=== PATIENT | female | born 1945 | race Caucasian/White ===

== ENCOUNTER 2020-12-06 07:16 | Emergency (ER) | payer MEDICARE, SELFPAY ==
[2020-12-06 07:16] VITALS: BP 137/107; PULSE 71; RESP 24; TEMP 36.7; O2SAT 100; BMI 41.5
[2020-12-06 07:33] LABS: Basophils # 0.1 K/mm3 (0-0.2); Basophils % 0.5 % (0.1-2.0); Eosinophils # 0.1 K/mm3 (0.0-0.4); Eosinophils % 0.9 % (0.1-12.0); Hematocrit 43.9 % (37.0-47.0); Hemoglobin 13.5 g/dL (12.2-16.2); Lymphocytes # 3.4 K/mm3 (0.7-4.5); Lymphocytes % 33.8 % (10-50); Mean Corpuscular HGB Conc 30.8 g/dL (31.8-35.4); Mean Corpuscular Hemoglobin 28.1 pg (27.0-31.2); Mean Corpuscular Volume 91.3 fl (81-99); Mean Platelet Volume 7.8 fl (7.4-10.4); Monocytes # 0.2 K/mm3 (0.1-1.0); Monocytes % 1.9 % (1.7-9.3); Neutrophils # 6.3 K/mm3 (1.8-7.8); Neutrophils % 62.9 % (37.0-80.0); Platelet Count 395 K/mm3 (142-424); Red Blood Count 4.81 M/mm3 (4.20-5.40)
--- NOTE | 2020-12-06 07:44 | CT_ITS ---
PROCEDURE: CT HEAD/BRAIN WO CON CLINICAL INDICATION: ams COMPARISON: CT CT HEAD/BRAIN WO CON from 12/10/2019 TECHNIQUE: Axial images obtained. All CT scans at the facility use one or more dose reduction, viz: automated exposure control, ma/kV adjustment per patient size (including targeted exams where dose is matched to indication, i.e. head), or iterative reconstruction technique. FINDINGS: No midline shift, mass effect, intracranial hemorrhage, hydrocephalus, or extra-axial fluid collection is evident. The sylvian fissures and cortical sulci are mildly prominent but unchanged from previous exam 12/10/2019. The calvarium has an unremarkable appearance except for mild hyperostosis frontalis interna. There is total occlusion of the right maxillary sinus secondary to prominent mucoperiosteal thickening and/or fluid and there is moderate mucoperiosteal thickening left maxillary sinus. The ethmoids and frontal sinuses are totally occluded by inflammatory fluid. The sphenoid sinus is somewhat hypoplastic but totally occluded by inflammatory changes.. The mastoids are clear. IMPRESSION: Pansinusitis, likely acute and chronic, similar changes were seen on the previous CT exam normal findings of mild age-appropriate cortical atrophy, no acute intracranial pathology noted Dictated by: Dr. Anthony Chowdhury MD 12/06/2020 08:26 Dr. Anthony Chowdhury MD in [facility] 12/06/2020 08:26
[2020-12-06 07:50] LABS: Alanine Aminotransferase 22 U/L (12-78); Albumin Level 4.3 g/dl (3.5-5.0); Albumin/Globulin Ratio 1.1 (1.1-1.8); Alkaline Phosphatase 159 U/L (38-126); Anion Gap 22.5 mEq/L (5-15); Aspartate Amino Transferase 42 U/L (14-36); Bilirubin,Total 0.6 mg/dl (0.2-1.3); Blood Urea Nitrogen 58 mg/dl (7-17); Calcium 10.5 mg/dl (8.4-10.2); Carbon Dioxide 19 mmol/L (22.0-30.0); Chloride 100 mmol/L (98-107); Creatinine Clearance Estimated 7 mL/min (50-200); Estimated Glomerular Filt Rate 6 ml/min (>60); GFR (African American) 8 ML/MIN (>60); Globulin 3.9 g/dL (1.3-3.2); Glucose 101 mg/dl (74-100); Potassium 5.5 mmoL/L (3.5-5.1); Sodium 136 mmol/L (136-145); Total Protein,Serum 8.2 g/dl (6.3-8.2)
--- NOTE | 2020-12-06 07:54 | PC.NURSE ---
Critical lab taken from lab, creatinine 6.5. Provider notified.
--- NOTE | 2020-12-06 08:02 | HMH.EDGENADL ---
ED Disposition Clinical Impression: Metabolic acidosis Altered mental status Qualifiers: Altered mental status type: delirium Qualified Code(s): R41.0 - Disorientation, unspecified Renal failure (ARF), acute on chronic Qualifiers: Acute renal failure type: unspecified Chronic kidney disease stage: unspecified stage Qualified Code(s): N17.9 - Acute kidney failure, unspecified; N18.9 - Chronic kidney disease, unspecified Disposition: Xfer Critical Access Hosp Condition on Discharge: Critical Instructions: DI for Altered Mental Status Referrals: Provider,Referral, MD [Primary Care Provider] - Time of Disposition: 10:33 - Critical Care Critical Care Time: Yes Attestation: On 12/06/20, the high probability of a clinically significant, sudden or life threatening deterioration of the following system(s) required my full and direct attention, intervention and personal management. The time I documented below is in addition to time spent performing reported procedures but includes the following listed in this critical care notation. Total Critical Care Time: 45 Vital system(s) involved:: Central Nervous System, Metabolic Failure, Renal Failure My critical care processes included: Assessment & monitoring of V/S, Initial and Re-exams, Data Review/Interpretation, Coordinating Care, Medication Orders and management, Documentation Medical Decision Making - Medical Records Medical records reviewed: Yes: I reviewed the patient's medical records. - Chucky Inquiry Pt receiving controlled substance: No Vital Signs: 12/06/20 07:16 12/06/20 09:08 12/06/20 09:30 Temperature 98.1 F Temperature Source Oral Pulse Rate [Left Radial] 71 80 78 Respiratory Rate 24 Blood Pressure [Right Arm] 137/107 H 171/107 H 140/86 Blood Pressure Mean [Right Arm] 117 128 104 Blood Pressure Source [Right Arm] Automatic Cuff Automatic Cuff Automatic Cuff Blood Pressure Position [Right Arm] Sitting Sitting Sitting 02 Sat by Pulse Oximetry 100 97 96 Oxygen Delivery Method Nasal Cannula Room Air Room Air Oxygen Flow Rate (LPM) 2 12/06/20 10:25 Temperature Temperature Source Pulse Rate [Left Radial] 63 Respiratory Rate Blood Pressure [Right Arm] 136/55 L Blood Pressure Mean [Right Arm] 82 Blood Pressure Source [Right Arm] Automatic Cuff Blood Pressure Position [Right Arm] Sitting 02 Sat by Pulse Oximetry 92 L Oxygen Delivery Method Room Air Oxygen Flow Rate (LPM) - Lab Data Lab Results 12/06/20 07:20: WBC 10.0, RBC 4.81, Hgb 13.5, Hct 43.9, MCV 91.3, MCH 28.1, MCHC 30.8 L, RDW 16.0, Plt Count 395, MPV 7.8, Neut % (Auto) 62.9, Lymph % (Auto) 33.8, [place] % (Auto) 1.9, Eos % (Auto) 0.9, Baso % (Auto) 0.5, Neut # (Auto) 6.3, Lymph # (Auto) 3.4, [place] # (Auto) 0.2, Eos # (Auto) 0.1, Baso # (Auto) 0.1 12/06/20 07:20: Sodium 136, Potassium 5.5 H, Chloride 100, Carbon Dioxide 19 L, Anion Gap 22.5 H, BUN 58 H, Creatinine 6.50 H, Estimated Creat Clear 7, Estimated GFR 6 L*, Est GFR ( Amer) 8 L*, Glucose 101 H, Calcium 10.5 H, Total Bilirubin 0.6, AST 42 H, ALT 22, Alkaline Phosphatase 159 H, Total Protein 8.2, Albumin 4.3, Globulin 3.9 H, Albumin/Globulin Ratio 1.1 12/06/20 07:21: TSH 9.00 H 12/06/20 08:24: VBG pH 7.18 L, VBG pCO2 48.3, VBG pO2 53.1 H, VBG HCO3 17.7 L, VBG Total CO2 19.2 L, VBG O2 Saturation 82.5 H, VBG Base Excess -10.6 L 12/06/20 08:30: Urine Creatinine 84 12/06/20 08:35: Urine Color Yellow, Urine Appearance Clear, Urine pH 6.0, Ur Specific [place] 1.020, Urine Protein Negative, Urine Glucose (UA) Negative, Urine Ketones Negative, Urine Blood Negative, Urine Nitrate Negative, Urine Bilirubin Negative, Urine Urobilinogen 0.2, Ur Leukocyte Esterase Negative, Urine RBC None, Urine WBC 5-10, Ur Squamous Epith Cells 50-100, Urine Bacteria None Result diagrams: 12/06/20 07:20 12/06/20 07:20 Orders (Tests/Meds): ED MEDICATIONS Generic Name Dose Route Start Last Admin Trade Name Freq PRN Reason Stop Dose Admin Olanzapin
--- NOTE | 2020-12-06 08:02 | PC.NURSE ---
Patient to ct.
--- NOTE | 2020-12-06 08:07 | CT_ITS ---
PROCEDURE: CT ABDOMEN PELVIS WO CON CLINICAL HISTORY: abd pain COMPARISON: CT ABDPELW/O CT ABD PELVIS W/O CONTRAST from 02/02/2015 TECHNIQUE: Axial images obtained with sagittal and coronal reformats. All CT scans at the facility use one or more dose reduction, viz: automated exposure control, ma/kV adjustment per patient size (including targeted exams where dose is matched to indication, i.e. head), or iterative reconstruction technique. FINDINGS: Unfortunately the highest images did not include any of the lung parenchyma and the right lower lobe pulmonary nodule seen on the previous exam is evaluated. The gastric lap band is again noted. The stomach is mildly dilated with air and fluid. The irregular calcification posterior capsule right lobe of liver is again seen stable and unchanged. The liver is otherwise unremarkable. The spleen is normal. The patient is post cholecystectomy. The pancreas is unremarkable. The adrenal glands are normal. The kidneys are normal in size again showing an extrarenal pelvis right kidney mildly dilated the stable unchanged from the previous exam. There is no definite obstructive uropathy of either kidney. There is prominent streak artifact from multilevel metallic brackets and pedicle screws thoracolumbar spine. The small bowel is grossly normal. There is moderate gaseous dilatation of the entire colon. There are no findings to a suggest bowel obstruction and there is no evidence of diverticulitis. The urinary bladder is moderately dilated with urine but otherwise appears normal. The patient is post hysterectomy. There is no free fluid in the pelvis. There is a large calcified injection granuloma upper portion right buttock. There is generalized osteopenia of the visualized portion of the thoracic spine and the entire lumbar spine. IMPRESSION: Colonic ileus, no definite evidence of mechanical small bowel or large bowel obstruction. Stable extrarenal pelvis right kidney but with no obvious obstructive uropathy of either kidney. Prominent streak artifact degrades anatomical detail in the abdomen due to the multilevel metallic brackets and pedicle screws involving the entire lumbar spine. Stable gastric lap band as noted Dictated by: Dr. Anthony Chowdhury MD 12/06/2020 10:20 Dr. Anthony Chowdhury MD in [facility] 12/06/2020 10:20
--- NOTE | 2020-12-06 08:08 | PC.NURSE ---
Called [facility] for possible transfer per Dr. Garcia
--- NOTE | 2020-12-06 08:12 | PC.NURSE ---
Dr Garcia speaking to Dr Rice at this time
--- NOTE | 2020-12-06 08:24 | XR_ITS ---
PROCEDURE: XR CHEST AP CLINICAL HISTORY: ams COMPARISON: CR CXR CHEST(2 VIEWS-NOT PORTABLE) from 12/10/2013 CR XR CHEST AP from 06/12/2019 FINDINGS: The cardiomediastinal silhouette and pulmonary vascularity are within normal limits considering the supine position. The lungs are clear without infiltrates, suspicious nodules, or pleural effusions. The metallic rods and pedicle screws are again seen lower thoracic spine No acute bony abnormalities. IMPRESSION: No acute findings. Dictated by: Dr. Anthony Chowdhury MD 12/06/2020 11:27 Dr. Anthony Chowdhury MD in [facility] 12/06/2020 11:27
--- NOTE | 2020-12-06 08:24 | ECG_ITS ---
APPROVED REPORT Exam: Resting ECG HR:66 bpm ECG Measurements Heart Rate [address] 172 P 60 QRSd 86 QRS 7 QT 424 T 19 QTc 444 Conclusion Normal sinus rhythm Normal ECG Electronically signed by : Felipe Montana, 12/06/2020 14:47:02
--- NOTE | 2020-12-06 08:26 | PC.NURSE ---
unable to obtain vs due to pt thrashing around.
[2020-12-06 08:39] LABS: Microscopic, Urine URINE MICROSCOPIC (MICROSCOPIC)
[2020-12-06 08:48] LABS: Appearance,Urine CLEAR (Clear); Bilirubin,Urine Negative (Negative); Blood, Urine Negative (Negative); Color,Urine YELLOW (Yellow); Glucose,Urine (UA) Negative (Negative); Ketones,Urine Negative (Negative); Leukocyte Esterase,Urine Negative (Negative); Nitrate,Urine Negative (Negative); Protein,Urine Negative (Negative); Urobilinogen,Urine 0.2 EU/dl (0.2)
[2020-12-06 08:54] LABS: VBG Base Excess -10.6 mmol/L (-2.4-2.3); VBG HCO3 17.7 mmol/L (23-30); VBG Oxygen Saturation 82.5 % (50-70); VBG PCO2 48.3 mmol/L (35-51); VBG PO2 53.1 mmol/L (28-40); VBG Total CO2 19.2 mmol/L (23-27)
[2020-12-06 08:55] LABS: VBG PH 7.18 mmol/L (7.31-7.41)
[2020-12-06 09:08] VITALS: BP 171/107; PULSE 80; O2SAT 97
[2020-12-06 09:12] LABS: Creatinine,Urine Random 84 mg/dL (Not Estab.)
[2020-12-06 09:13] LABS: Squamous Epithelial Cell,Urine 50-100 #/hpf (0-5)
[2020-12-06 09:30] VITALS: BP 140/86; PULSE 78; O2SAT 96
--- NOTE | 2020-12-06 09:46 | PC.NURSE ---
Pt to rad.
--- NOTE | 2020-12-06 10:18 | PC.NURSE ---
Dr Garcia spoke with radiologist. Calling [facility] back at this time.
[2020-12-06 10:25] VITALS: BP 136/55; PULSE 63; O2SAT 92
--- NOTE | 2020-12-06 10:28 | PC.NURSE ---
Dr Rice returned call, speaking with Dr Garcia at this time.
[2020-12-06 11:27] VITALS: BP 143/62; PULSE 68; O2SAT 96
--- NOTE | 2020-12-06 11:29 | PC.NURSE ---
[facility] aware of transfer
[2020-12-06 11:47] LABS: POC Glucose,Bedside 112 (70-110)
[2020-12-06 11:54] VITALS: BP 170/59; PULSE 64; RESP 16; TEMP 36.8; O2SAT 96
[2020-12-07 13:29] LABS: Sodium, Urine 45 mmol/L (Not Estab.)
[2020-12-08 05:24] LABS: Osmolality, Urine 290 mOsmol/kg (.)
[2020-12-21 11:08] LABS: POC Glucose,Bedside 78 (70-110)
== END 2020-12-06 11:57 | disposition critical access hospital (66) ==
PROVIDERS: Emergency Medicine; Emergency Provider Emergency Medicine
DX: E87.2 Acidosis (principal); N17.9 Acute kidney failure, unspecified; E79.0 Hyperuricemia without signs of inflammatory arthritis and tophaceous disease; E11.9 Type 2 diabetes mellitus without complications; Z20.822 Contact with and (suspected) exposure to COVID-19; Z79.4 Long term (current) use of insulin; I10 Essential (primary) hypertension; M54.5 Low back pain; Z88.8 Allergy status to other drugs, medicaments and biological substances; Z79.899 Other long term (current) drug therapy
CPT/HCPCS: 70450; 71045; 74176; 80053; 81001; 82533; 82570; 82803; 82962; 83935; 84300; 84443; 85025; 93005; 96366; 96372; 96374; 96375; 99284; U0003

== ENCOUNTER 2021-01-07 09:57 | Emergency (ER) | payer MEDICARE, SELFPAY ==
[2021-01-07 10:08] VITALS: BP 136/82; PULSE 84; RESP 20; TEMP 36.6; O2SAT 98; BMI 47.5
--- NOTE | 2021-01-07 10:24 | XR_ITS ---
PROCEDURE: XR KUB CLINICAL INDICATION: ABD PAIN Abdominal pain constipation COMPARISON: CT CT ABDOMEN PELVIS WO CON from 12/06/2020 FINDINGS: Moderate amount of retained colonic feces throughout. Gastric lap band is present. Extensive postsurgical changes of the lower thoracic and lumbar spine. Heterotopic ossification superior to the right greater trochanter. 9 mm calcific density right upper quadrant possibly due to a common duct stone. IMPRESSION: Constipation. Possible biliary common duct stone Dictated by: Troy Chun MD 01/07/2021 11:27 Troy Chun MD in [facility] 01/07/2021 11:27
--- NOTE | 2021-01-07 10:27 | HMH.EDABDPAI ---
ED Disposition Clinical Impression: Impaction of colon Disposition: Home, Self-Care Condition on Discharge: Good Instructions: DI for Acute Abdominal Pain Referrals: Maximino Roth [Primary Care Provider] - - Critical Care Critical Care Time: No Attestation: On 01/07/21, the high probability of a clinically significant, sudden or life threatening deterioration of the following system(s) required my full and direct attention, intervention and personal management. The time I documented below is in addition to time spent performing reported procedures but includes the following listed in this critical care notation. Medical Decision Making - Medical Records Medical records reviewed: Yes: I reviewed the patient's medical records. - Chucky Inquiry Pt receiving controlled substance: No Vital Signs: 01/07/21 10:08 Temperature 98 F Temperature Source Oral Pulse Rate [Radial] 84 Respiratory Rate 20 Blood Pressure [Right Arm] 136/82 Blood Pressure Mean [Right Arm] 100 Blood Pressure Position [Right Arm] Sitting 02 Sat by Pulse Oximetry 98 Oxygen Delivery Method Room Air - Lab Data Lab Results 01/07/21 11:25: WBC 13.4 H, RBC 4.24, Hgb 11.4 L, Hct 36.8 L, MCV 86.9, MCH 26.9 L, MCHC 31.0 L, RDW 16.2, Plt Count 239, MPV 7.5, Neut % (Auto) 80.9 H, Lymph % (Auto) 15.6, [place] % (Auto) 2.6, Eos % (Auto) 0.6, Baso % (Auto) 0.4, Neut # (Auto) 10.8 H, Lymph # (Auto) 2.1, [place] # (Auto) 0.3, Eos # (Auto) 0.1, Baso # (Auto) 0.1 01/07/21 11:25: Sodium 137, Potassium 3.9, Chloride 105, Carbon Dioxide 22, Anion Gap 13.9, BUN 16, Creatinine 1.30 H, Estimated Creat Clear 26, Estimated GFR 40 L, Est GFR ( Amer) 48 L, Glucose 300 H, Calcium 10.1, Total Bilirubin 0.9, AST 23, ALT 24, Alkaline Phosphatase 200 H, Total Protein 7.5, Albumin 4.1, Globulin 3.4 H, Albumin/Globulin Ratio 1.2, Lipase 158 01/07/21 11:25: Lactate 1.2 Result diagrams: 01/07/21 11:25 01/07/21 11:25 - CT Data CT Scan: Abdomen, Pelvis Time Received: 11:[address] Reviewed: Yes: I have reviewed the patient's CT results, I have viewed the radiologist's interpretation Findings Narrative: rectal impaction; calcification of pancreatic head; pulmonary nodules Abdominal Pain HPI - General Chief Complaint: Abdominal Pain Stated Complaint: no bowel movement in 3 weeks Time Seen by Provider: 01/07/21 10:15 Mode of Arrival: Ambulatory Limitations: No Limitations Description of Symptoms (Recalled from ER Triage Doc. by RN): TO ED PER [facility] CAR WITH C/O ABD PAIN, NAUSEA, CONSTIPATION, LAST BM 3 WEEKS AGO. PT STATES SHE HAS TRIED SEVERAL ENEMAS AND MEDICATIONS WITH NO RELIEF. - History of Present Illness HPI narrative: This is a 75-year-old female presents with diffuse abdominal pain ongoing progressively x3 weeks. Patient reports no bowel movement in the last 3 weeks. She reports despite taking multiple cathartics she is still had no regulation of her bowels. Pain is diffuse and severe. Patient denies obstipation she also denies vomiting but does endorse nausea. Pain is sharp/cramping and constant. No fever no chills. - Related Data Home Medications Medication Instructions Recorded Confirmed Aspirin 81 mg PO DAILY 12/06/20 12/06/20 Budesonide/Formoterol Fumarate 10.2 gm INHALATION NEEDED PRN 12/06/20 12/06/20 [Symbicort 80-4.5 Mcg Inhaler] Butalb/Acetaminophen/Caffeine 50 - 325 mg PO NEEDED PRN 12/06/20 12/06/20 [Wbbwvl-Khdmvegx-Vhha 50-325-40] Furosemide [Lasix 20mg tablet] 20 mg PO DAILY 12/06/20 12/06/20 Glimepiride 4 mg PO DAILY 12/06/20 12/06/20 Hydrocodone/Acetaminophen 10 - 325 mg PO BID 12/06/20 12/06/20 [Hydrocodone-Acetamin 10-325 mg] Insulin Aspart Prot/Insuln Asp 70 units SQ DAILY 12/06/20 12/06/20 [Novolog Mix 70-30 Vial] Levothyroxine Sodium 175 mcg PO DAILY 12/06/20 12/06/20 [Levothyroxine 175mcg (0.175mg) Tab] Losartan Potassium 50 mg PO DAILY 12/06/20 12/06/20 Morphine Sulfate [Morphine Sulfate
--- NOTE | 2021-01-07 10:40 | CT_ITS ---
PROCEDURE: CT ABDOMEN PELVIS WO CON CLINICAL INDICATION: abd pain Abdominal pain, constipation, questionable bowel obstruction COMPARISON: CT ABDPELW/O CT ABD PELVIS W/O CONTRAST from 02/02/[address] ABDOMEN PELVIS WO CON from 12/06/2020 TECHNIQUE: Axial images obtained with sagittal and coronal reformats. All CT scans at the facility use one or more dose reduction, viz: automated exposure control, ma/kV adjustment per patient size (including targeted exams where dose is matched to indication, i.e. head), or iterative reconstruction technique. FINDINGS: LOWER THORAX: There is a 14 mm lobulated noncalcified nodule in the right lower lobe posteriorly. There is a small right pleural effusion and trace left pleural effusion. ABDOMEN & PELVIS: There is a gastric lap band present at the GE junction which appears to be in satisfactory position. There is mild irregularity of the surface of the liver with a prominent left hepatic lobe which may be seen with cirrhosis. Please correlate with clinical parameters. Calcification is present along the posterior liver surface on the right with associated with a 14 mm peripheral hypodensity which is stable.. The spleen and adrenal glands are unremarkable. An 8 mm calcific density is present in the head of the pancreas and may represent a stone within the common bile duct. MRCP may confirm. There are some some additional small calcific foci within the head of the pancreas which may represent sequela from chronic pancreatitis. No renal calculi parent. There is mild prominence of the right renal pelvis not significantly changed. No obvious ureteral calculi. There is a moderate amount of retained colonic feces throughout the colon. There is rectal fecal impaction with the rectum measuring approximately 8 cm in AP dimension. There is thickening of the mucosa of the rectum with stranding of the presacral fat. Stercoral colitis is a consideration. Small bowel gas pattern is nonspecific with a few air-fluid levels within nondistended bowel loops. There is small bowel anastomosis noted in the mid abdominal region. Extensive postsurgical changes of the thoracic and lumbar spine with inter pedicular screws and connecting rods from the lower thoracic spine to the sacrum. The inferior aspect of the connecting pratima on the right extends into the sub cutaneous soft tissues. Bilateral iliac lag screws are also present. Numerous subcutaneous nodular opacities are present and may be due to injection granulomas. Metastatic foci would be included in the differential diagnosis. IMPRESSION: 1. Constipation. Rectal fecal impaction with thickening of the rectal wall and stranding of the perirectal and presacral fat. Stercoral colitis is considered. 2. 8 mm calcific density in the pancreatic head which may represent a common duct stone. ERCP or MRCP may confirm. 3. Small right pleural effusion and trace left pleural effusion. 4. Indeterminate 14 mm right lower lobe nodule. Chest CT may provide further evaluation and to search for additional nodules. 5. Possible cirrhosis. 6. Multiple nodular opacities in the anterior abdominal wall not readily apparent on 12/06/2020 and could be due to areas of injection site. Dictated by: Troy Chun MD 01/07/2021 11:25 Troy Chun MD in [facility] 01/07/2021 11:25
[2021-01-07 11:34] LABS: Basophils # 0.1 K/mm3 (0-0.2); Basophils % 0.4 % (0.1-2.0); Eosinophils # 0.1 K/mm3 (0.0-0.4); Eosinophils % 0.6 % (0.1-12.0); Hematocrit 36.8 % (37.0-47.0); Hemoglobin 11.4 g/dL (12.2-16.2); Lymphocytes # 2.1 K/mm3 (0.7-4.5); Lymphocytes % 15.6 % (10-50); Mean Corpuscular Hemoglobin 26.9 pg (27.0-31.2); Mean Corpuscular Volume 86.9 fl (81-99); Mean Platelet Volume 7.5 fl (7.4-10.4); Monocytes # 0.3 K/mm3 (0.1-1.0); Monocytes % 2.6 % (1.7-9.3); Neutrophils # 10.8 K/mm3 (1.8-7.8); Neutrophils % 80.9 % (37.0-80.0); Platelet Count 239 K/mm3 (142-424); Red Blood Count 4.24 M/mm3 (4.20-5.40); Red Cell Distribution Width 16.2 % (11.5-17.5); White Blood Count 13.4 K/mm3 (4.8-10.8)
[2021-01-07 11:37] LABS: Chloride 105 mmol/L (98-107)
[2021-01-07 11:38] LABS: Potassium 3.9 mmoL/L (3.5-5.1); Sodium 137 mmol/L (136-145)
[2021-01-07 11:40] LABS: Alanine Aminotransferase 24 U/L (12-78); Aspartate Amino Transferase 23 U/L (14-36); Blood Urea Nitrogen 16 mg/dl (7-17); Creatinine Clearance Estimated 26 mL/min (50-200); Estimated Glomerular Filt Rate 40 ml/min (>60); GFR (African American) 48 ML/MIN (>60); Lactic Acid 1.2 mmol/L (0.7-2.1)
[2021-01-07 11:41] LABS: Albumin Level 4.1 g/dl (3.5-5.0); Albumin/Globulin Ratio 1.2 (1.1-1.8); Alkaline Phosphatase 200 U/L (38-126); Anion Gap 13.9 mEq/L (5-15); Bilirubin,Total 0.9 mg/dl (0.2-1.3); Calcium 10.1 mg/dl (8.4-10.2); Carbon Dioxide 22 mmol/L (22.0-30.0); Globulin 3.4 g/dL (1.3-3.2); Glucose 300 mg/dl (74-100); Lipase 158 U/L (23-300); Total Protein,Serum 7.5 g/dl (6.3-8.2)
[2021-01-07 12:43] VITALS: BP 125/74; PULSE 78; RESP 16; TEMP 36.6; O2SAT 98
== END 2021-01-07 12:45 | disposition home or self-care (01) ==
PROVIDERS: Emergency Provider Emergency Medicine; PCP Social Worker
DX: K56.49 Other impaction of intestine (principal); E11.65 Type 2 diabetes mellitus with hyperglycemia; I10 Essential (primary) hypertension; E66.9 Obesity, unspecified; Z68.42 Body mass index [BMI] 45.0-49.9, adult; Z85.05 Personal history of malignant neoplasm of liver; Z88.8 Allergy status to other drugs, medicaments and biological substances; Z79.899 Other long term (current) drug therapy
CPT/HCPCS: 74018; 74176; 80053; 83605; 83690; 85025; 96365; 99282

== ENCOUNTER 2021-01-22 07:44 | Emergency (ER) | payer MEDICARE, SELFPAY ==
[2021-01-22] VITALS (8 sets, daily range): BP systolic 123–164; BP diastolic 66–80; PULSE 50–61; RESP 14–18; TEMP 36.6; O2SAT 96–100; BMI 40.3
--- NOTE | 2021-01-22 07:46 | ECG_ITS ---
APPROVED REPORT Exam: Resting ECG HR:62 bpm ECG Measurements Heart Rate 62 AXES OR 170 P 45 QRSd 80 QRS 6 QT 434 T 27 QTc 440 Conclusion Sinus rhythm with occasional premature ventricular complexes Otherwise normal ECG Electronically signed by : Felipe Montana, 01/23/2021 18:06:13
--- NOTE | 2021-01-22 07:48 | PC.NURSE ---
initial finger stick 129 mg/dl
--- NOTE | 2021-01-22 08:05 | HMH.EDGENADL ---
ED Disposition Clinical Impression: Hypoglycemia Disposition: Home, Self-Care Condition on Discharge: Good Instructions: DI for Hyperglycemia -- Adult Referrals: Maximino Roth [Primary Care Provider] - - Critical Care Critical Care Time: No Attestation: On 01/22/21, the high probability of a clinically significant, sudden or life threatening deterioration of the following system(s) required my full and direct attention, intervention and personal management. The time I documented below is in addition to time spent performing reported procedures but includes the following listed in this critical care notation. Medical Decision Making - Chucky Inquiry Pt receiving controlled substance: No Vital Signs: 01/22/21 07:45 01/22/21 08:04 01/22/21 08:30 Temperature 97.8 F Temperature Source Oral Pulse Rate 57 L 61 Pulse Rate [Radial] 56 L Respiratory Rate 16 18 14 Blood Pressure 164/76 H 148/69 H Blood Pressure [Right Arm] 160/80 H Blood Pressure Mean 83 95 Blood Pressure Mean [Right Arm] 106 Blood Pressure Position [Right Arm] Sitting 02 Sat by Pulse Oximetry 100 100 98 Oxygen Delivery Method Room Air 01/22/21 09:00 01/22/21 09:30 01/22/21 10:00 Temperature Temperature Source Pulse Rate 51 L 50 L 52 L Pulse Rate [Radial] Respiratory Rate 16 14 16 Blood Pressure 147/79 H 123/77 145/66 H Blood Pressure [Right Arm] Blood Pressure Mean 96 97 92 Blood Pressure Mean [Right Arm] Blood Pressure Position [Right Arm] 02 Sat by Pulse Oximetry 99 98 96 Oxygen Delivery Method 01/22/21 10:30 Temperature Temperature Source Pulse Rate 54 L Pulse Rate [Radial] Respiratory Rate 18 Blood Pressure 158/69 H Blood Pressure [Right Arm] Blood Pressure Mean 96 Blood Pressure Mean [Right Arm] Blood Pressure Position [Right Arm] 02 Sat by Pulse Oximetry 97 Oxygen Delivery Method - Lab Data Lab Results 01/22/21 07:55: WBC 12.6 H, RBC 5.06, Hgb 13.9, Hct 44.1, MCV 87.1, MCH 27.4, MCHC 31.4 L, RDW 15.6, Plt Count 457 H, MPV 8.2, Neut % (Auto) 68.2, Lymph % (Auto) 26.1, [place] % (Auto) 4.0, Eos % (Auto) 1.0, Baso % (Auto) 0.8, Neut # (Auto) 8.6 H, Lymph # (Auto) 3.3, [place] # (Auto) 0.5, Eos # (Auto) 0.1, Baso # (Auto) 0.1 01/22/21 07:55: Sodium 138, Potassium 4.1, Chloride 95 L, Carbon Dioxide 34 H, Anion Gap 13.1, BUN 25 H, Creatinine 1.60 H, Estimated Creat Clear 54, Estimated GFR 31 L, Est GFR ( Amer) 38 L, Glucose 166 H, Calcium 11.9 H, Total Bilirubin 0.6, AST 26, ALT 16, Alkaline Phosphatase 159 H, Troponin I < 0.01, Total Protein 8.2, Albumin 4.7, Globulin 3.5 H, Albumin/Globulin Ratio 1.3 01/22/21 08:03: Urine Color Yellow, Urine Appearance Clear, Urine pH 7.0, Ur Specific [place] 1.010, Urine Protein Negative, Urine Glucose (UA) Negative, Urine Ketones Negative, Urine Blood Negative, Urine Nitrate Negative, Urine Bilirubin Negative, Urine Urobilinogen 0.2, Ur Leukocyte Esterase Negative, Urine RBC None, Urine WBC None, Ur Squamous Epith Cells Occasional, Urine Bacteria Trace 01/22/21 10:31: POC Glucose 124 H Result diagrams: 01/22/21 07:55 01/22/21 07:55 - Radiology Data #1 Image(s): Chest Image Reviewed: Yes I have reviewed radiologist's interpretation PROCEDURE: XR CHEST PORTABLE CLINICAL HISTORY: HYPOGLYCEMIA COMPARISON: CR CXR CHEST(2 VIEWS-NOT PORTABLE) from 12/10/2013 CR XR CHEST AP from 06/12/2019 CR XR CHEST AP from 12/06/2020 FINDINGS: Normal heart size. Mild prominence of the mediastinum which may be due to the low lung volumes and AP supine technique. The lungs are clear without infiltrates, suspicious nodules, or pleural effusions. Postsurgical changes of the thoracic and lumbar inter pedicular screws and connecting rods IMPRESSION: No acute findings. Dictated by: Troy Chun MD 01/22/2021 09:00 Troy Chun MD in [facility] 01/22/2021 09:00 - CT Data CT Scan: Head Time Received: 09:[address] Reviewed: Yes: I
--- NOTE | 2021-01-22 08:06 | CT_ITS ---
PROCEDURE: CT HEAD/BRAIN WO CON CLINICAL INDICATION: UNRESPONSIVE COMPARISON: CT CT HEAD/BRAIN WO CON from 12/06/2020 TECHNIQUE: Axial images obtained. All CT scans at the facility use one or more dose reduction, viz: automated exposure control, ma/kV adjustment per patient size (including targeted exams where dose is matched to indication, i.e. head), or iterative reconstruction technique. FINDINGS: No midline shift, mass effect, intracranial hemorrhage, hydrocephalus, or extra-axial fluid collection is evident. The calvarium has an unremarkable appearance. No mastoid effusion. There is opacification of the right maxillary sinus and the frontal sinuses bilateral ethmoid sinuses IMPRESSION: No acute intracranial findings. Sinusitis Dictated by: Troy Chun MD 01/22/2021 08:58 Troy Chun MD in [facility] 01/22/2021 08:58
[2021-01-22 08:12] LABS: Microscopic, Urine URINE MICROSCOPIC (MICROSCOPIC)
[2021-01-22 08:17] LABS: Appearance,Urine CLEAR (Clear); Bilirubin,Urine Negative (Negative); Blood, Urine Negative (Negative); Color,Urine YELLOW (Yellow); Glucose,Urine (UA) Negative (Negative); Ketones,Urine Negative (Negative); Leukocyte Esterase,Urine Negative (Negative); Nitrate,Urine Negative (Negative); Protein,Urine Negative (Negative); Urobilinogen,Urine 0.2 EU/dl (0.2)
[2021-01-22 08:19] LABS: Potassium 4.1 mmoL/L (3.5-5.1); Sodium 138 mmol/L (136-145)
[2021-01-22 08:21] LABS: Alanine Aminotransferase 16 U/L (12-78); Alkaline Phosphatase 159 U/L (38-126); Aspartate Amino Transferase 26 U/L (14-36); Bilirubin,Total 0.6 mg/dl (0.2-1.3); Blood Urea Nitrogen 25 mg/dl (7-17); Creatinine Clearance Estimated 54 mL/min (50-200); Estimated Glomerular Filt Rate 31 ml/min (>60); GFR (African American) 38 ML/MIN (>60)
[2021-01-22 08:22] LABS: Albumin Level 4.7 g/dl (3.5-5.0); Albumin/Globulin Ratio 1.3 (1.1-1.8); Calcium 11.9 mg/dl (8.4-10.2); Carbon Dioxide 34 mmol/L (22.0-30.0); Globulin 3.5 g/dL (1.3-3.2); Glucose 166 mg/dl (74-100); Total Protein,Serum 8.2 g/dl (6.3-8.2)
[2021-01-22 08:25] LABS: Anion Gap 13.1 mEq/L (5-15); Chloride 95 mmol/L (98-107)
[2021-01-22 08:29] LABS: Basophils # 0.1 K/mm3 (0-0.2); Basophils % 0.8 % (0.1-2.0); Eosinophils # 0.1 K/mm3 (0.0-0.4); Hematocrit 44.1 % (37.0-47.0); Hemoglobin 13.9 g/dL (12.2-16.2); Lymphocytes # 3.3 K/mm3 (0.7-4.5); Lymphocytes % 26.1 % (10-50); Mean Corpuscular HGB Conc 31.4 g/dL (31.8-35.4); Mean Corpuscular Hemoglobin 27.4 pg (27.0-31.2); Mean Corpuscular Volume 87.1 fl (81-99); Mean Platelet Volume 8.2 fl (7.4-10.4); Monocytes # 0.5 K/mm3 (0.1-1.0); Neutrophils # 8.6 K/mm3 (1.8-7.8); Neutrophils % 68.2 % (37.0-80.0); Platelet Count 457 K/mm3 (142-424); Red Blood Count 5.06 M/mm3 (4.20-5.40); Red Cell Distribution Width 15.6 % (11.5-17.5); White Blood Count 12.6 K/mm3 (4.8-10.8)
[2021-01-22 08:42] LABS: Bacteria,Urine Trace /lpf; Squamous Epithelial Cell,Urine Occasional #/hpf (0-5)
[2021-01-22 08:43] LABS: Troponin I < 0.01 ng/ml (0.00-0.034)
--- NOTE | 2021-01-22 10:33 | PC.NURSE ---
fsbs 124
[2021-01-22 10:39] LABS: POC Glucose,Bedside 124 (70-110)
[2021-03-13 11:31] LABS: POC Glucose,Bedside 129 (70-110)
== END 2021-01-22 11:50 | disposition home or self-care (01) ==
PROVIDERS: Emergency Medicine; Emergency Provider Emergency Medicine; PCP Social Worker
DX: E11.649 Type 2 diabetes mellitus with hypoglycemia without coma (principal); Z79.4 Long term (current) use of insulin; Z88.8 Allergy status to other drugs, medicaments and biological substances; Z79.899 Other long term (current) drug therapy
CPT/HCPCS: 70450; 71045; 80053; 81001; 82962; 84484; 85025; 93005; 99283

== ENCOUNTER → 2023-04-09 14:28 | Outpatient (CLI) | payer MEDICARE, SELFPAY ==
[2023-04-09 15:20] LABS: Basophils % 0.5 % (0.1-2.0); Eosinophils # 0.3 K/mm3 (0.0-0.4); Eosinophils % 3.6 % (0.1-12.0); Hemoglobin 13.5 g/dL (12.2-16.2); Lymphocytes # 3.1 K/mm3 (0.7-4.5); Mean Corpuscular HGB Conc 30.7 g/dL (31.8-35.4); Mean Corpuscular Volume 91.3 fl (81-99); Mean Platelet Volume 8.4 fl (7.4-10.4); Monocytes # 0.3 K/mm3 (0.1-1.0); Monocytes % 3.9 % (1.7-9.3); Neutrophils # 4.3 K/mm3 (1.8-7.8); Platelet Count 257 K/mm3 (142-424); Red Blood Count 4.82 M/mm3 (4.20-5.40); Red Cell Distribution Width 14.8 % (11.5-17.5)
[2023-04-11 06:02] LABS: AFP, Tumor Marker <1.8 ng/mL (0.0-9.2); HBsAg Screen Negative (Negative); HCV Ab Non Reactive (Non Reactive); Hep A Ab, IGM Negative (Negative); Hep B Core Ab, IgM Negative (Negative)
== END ==
PROVIDERS: PCP Social Worker; Visit Provider Specialist
DX: R10.84 Generalized abdominal pain (principal); Z85.05 Personal history of malignant neoplasm of liver; K75.81 Nonalcoholic steatohepatitis (NASH); K74.60 Unspecified cirrhosis of liver
CPT/HCPCS: 36415; 80074; 82105; 85025

== ENCOUNTER → 2023-04-11 08:27 | Outpatient (CLI) | payer MEDICARE, SELFPAY ==
--- NOTE | 2023-04-11 08:31 | US_ITS ---
FINAL REPORT CLINICAL HISTORY: HISTORY OF LIVER CANCER COMPARISON: None FINDINGS: Sonographic images of the right upper quadrant were obtained. The pancreas is partially obscured. There is coarsening of the echotexture of the liver, that may be secondary to cirrhosis of the liver. The gallbladder is not visualized on this examination, suggesting either prior surgical resection or a severely contracted gallbladder. There is no evidence of biliary ductal dilatation.The common duct measures 3 mm. The right kidney is poorly visualized, and measures only 6.6 cm in length. This may represent a small atrophic poorly functioning kidney. IMPRESSION: Coarsening of the echotexture of the liver, possibly secondary to cirrhosis. The gallbladder is not visualized on this examination. It may have been surgically resected, and clinical correlation is suggested. The right kidney is poorly visualized and may be atrophic. Other renal imaging modalities such as CT or MR might be helpful if clinically indicated. Reviewed, Interpreted and Dictated by Sae Junior III, MD Transcribed by Nette Rainey Authenticated and [facility]
== END ==
PROVIDERS: PCP Social Worker; Visit Provider Specialist
DX: R10.84 Generalized abdominal pain (principal); Z85.05 Personal history of malignant neoplasm of liver; K75.81 Nonalcoholic steatohepatitis (NASH); K74.60 Unspecified cirrhosis of liver
CPT/HCPCS: 76705

== ENCOUNTER 2023-04-11 15:00 | Outpatient (RCR) | payer MEDICARE, SELFPAY | END 2023-04-11 15:05 | disposition home or self-care (01) | LOC: PT 15:00 | PROVIDERS: PCP Social Worker; Visit Provider Social Worker | DX: R26.9 Unspecified abnormalities of gait and mobility (principal); M62.81 Muscle weakness (generalized); R29.6 Repeated falls | CPT/HCPCS: 97163; 97530 ==

== ENCOUNTER 2023-08-01 15:36 | Inpatient (IN) | payer MEDICARE, SELFPAY ==
[2023-08-01] VITALS (27 sets, daily range): BP systolic 70–148; BP diastolic 32–67; PULSE 42–63; RESP 14–20; TEMP 36.5–36.7; O2SAT 91–100; BMI 34.3; BMI 28.8
--- NOTE | 2023-08-01 15:11 | PC.NURSE ---
CODE SEPSIS ACTIVATED. ER MD AT BEDSIDE.
--- NOTE | 2023-08-01 15:11 | ECG_ITS ---
APPROVED REPORT Exam: Resting ECG HR:65 bpm ECG Measurements Heart Rate 65 AXES WV 168 P 85 QRSd 83 QRS 9 QT 402 T 32 QTc 413 Conclusion SINUS RHYTHM LOW QRS VOLTAGE IN EXTREMITY LEADS [QRS DEFLECTION < 0.5 mV IN LIMB LEADS] BORDERLINE ECG UNCONFIRMED REPORT Electronically signed by : Felipe Montana MD 08/02/2023 21:25:56
--- NOTE | 2023-08-01 15:29 | HMH.EDGENADL ---
Discharge Plan Disposition Patient Disposition: Admitted Chief Complaint: Weakness Clinical Impressions Clinical Impression: Septic shock, Acute hypokalemia, Hypocalcemia, Hypomagnesemia Discharge ED Provider: Albert Romero General Adult HPI General Chief complaint: Weakness Stated complaint: AMS, weak, hypotensive Time Seen by Provider: 08/01/23 15:29 History of Present Illness HPI narrative: Patient is 77-year-old female past medical history of CKD, COPD on 2 to 3 L nasal cannula at home impaction of colon status post resection, chronic back pain status post pain pump placement 2 years ago who presents emergency department for weakness. History is obtained by patient and by family at bedside. For 2 weeks patient has had upper respiratory symptoms, cough. Over the last 2 days she has had precipitous decline with inability to complete activities of daily living, no urine output today. Patient denies chest pain, headache, abdominal pain, other acute complaints at this time. There is associated shortness of breath and productive cough. Last bowel movement yesterday. Related Data Home Medications Medication Instructions Recorded Confirmed allopurinol 100 mg tablet 100 mg PO DAILY gout 12/06/20 08/01/23 aspirin 81 mg chewable tablet 81 mg PO DAILY Blood thinner 12/06/20 08/01/23 budesonide-formoterol HFA 80 10.2 gm inhalation NEEDED PRN 12/06/20 08/01/23 mcg-4.5 mcg/actuation aerosol copd inhaler qlnjrltzou-xtrskjvkajlik-bfnocvln 50 - 325 mg PO NEEDED PRN pain 12/06/20 08/01/23 50 mg-325 mg-40 mg tablet furosemide 20 mg tablet 20 mg PO DAILY Edema 12/06/20 08/01/23 glimepiride 4 mg tablet 4 mg PO DAILY Diabetes 12/06/20 08/01/23 hydrocodone 10 mg-acetaminophen 10 - 325 mg PO BID Pain 12/06/20 08/01/23 325 mg tablet insulin aspar prt-insulin aspart 70 units SQ DAILY Diabetes 12/06/20 08/01/23 100 unit/mL (70-30) subcutaneous soln levothyroxine 175 mcg tablet 175 mcg PO DAILY thyroid 12/06/20 08/01/23 losartan 50 mg tablet 50 mg PO DAILY blood pressure 12/06/20 08/01/23 morphine 20 mg capsule,extended 15 mg PO BID Pain 12/06/20 08/01/23 release pellets pravastatin 20 mg tablet 20 mg PO DAILY Cholesterol 12/06/20 08/01/23 propranolol 60 mg tablet 60 mg PO DAILY blood pressure 12/06/20 08/01/23 tizanidine 4 mg tablet 4 mg PO BID Anxiety 12/06/20 08/01/23 Allergies Allergy/AdvReac Type Severity Reaction Status Date / Time artichoke Allergy Severe S-SWELLS-OR Verified 08/01/23 16:08 [From ARTICHOKE (FOOD/DRUG)] AL/THROAT aspartame Allergy Severe S-SWELLS-OR Verified 08/01/23 16:08 [From ASPARTAME (FOOD/DRUG)] AL/THROAT egg [From EGGS (FOOD/DRUG)] Allergy Severe S-SWELLS-OR Verified 08/01/23 16:08 AL/THROAT amitriptyline Allergy Intermediate HALLUCINATI Verified 08/01/23 16:08 ONS cefprozil [From Cefzil] Allergy Unknown Verified 08/01/23 16:08 gabapentin Allergy Unknown Verified 08/01/23 16:08 Iodinated Contrast Media Allergy Unknown Verified 08/01/23 16:08 [Iodinated Contrast Media - IV Dye] lincomycin [From Lincocin] Allergy Unknown Verified 08/01/23 16:08 loratadine Allergy Unknown Verified 08/01/23 16:08 terfenadine [From Seldane] Allergy Unknown Verified 08/01/23 16:08 metformin AdvReac Mild NA-DIARRHEA Verified 08/01/23 16:08 metoclopramide AdvReac Mild VISION Verified 08/01/23 16:08 PROBLEMS From ASPARTAME (FOOD/DRUG) Allergy Severe S-SWELLS-OR Uncoded 09/17/17 14:38 AL/THROAT From EGGS (FOOD/DRUG) Allergy Severe S-SWELLS-OR Uncoded 09/17/17 14:38 [facility] Disclaimer: The information contained in this section may have been updated after the patient was seen, as this information can be updated by other users. Social History Smoking Status: Never smoker alcohol intake: never current occupational status: retired Travel in the last 8 weeks: None household members: spouse ROS Obtained: Yes Systems reviewed as charlie
[2023-08-01 15:37] LABS: VBG Base Excess 3.1 mmol/L (-2.4-2.3); VBG HCO3 27.9 mmol/L (23-30); VBG Oxygen Saturation 95.1 % (50-70); VBG PCO2 45.6 mmol/L (35-51); VBG PO2 76.8 mmol/L (28-40); VBG Total CO2 29.3 mmol/L (23-27)
[2023-08-01 15:37] LABS: Basophils # 0.1 K/mm3 (0-0.2); Basophils % 0.4 % (0.1-2.0); Eosinophils # 0.3 K/mm3 (0.0-0.4); Eosinophils % 1.8 % (0.1-12.0); Hematocrit 34.8 % (37.0-47.0); Hemoglobin 11.8 g/dL (12.2-16.2); Lymphocytes # 2.9 K/mm3 (0.7-4.5); Lymphocytes % 20.6 % (10-50); Mean Corpuscular Hemoglobin 29.9 pg (27.0-31.2); Mean Platelet Volume 8.3 fl (7.4-10.4); Monocytes # 0.4 K/mm3 (0.1-1.0); Neutrophils # 10.5 K/mm3 (1.8-7.8); Neutrophils % 74.2 % (37.0-80.0); Platelet Count 406 K/mm3 (142-424); Red Blood Count 3.95 M/mm3 (4.20-5.40); Red Cell Distribution Width 15.2 % (11.5-17.5); White Blood Count 14.1 K/mm3 (4.8-10.8)
[2023-08-01 15:46] LABS: Activated Partial Thrombo Time 29.4 seconds (22.8-30.6); INR 1.33 (0.9-1.1); Prothrombin Time 14.1 seconds (10.1-12.5)
[2023-08-01 15:48] LABS: Alanine Aminotransferase 23 U/L (12-78); Albumin/Globulin Ratio 0.6 (1.1-1.8); Alkaline Phosphatase 177 U/L (38-126); Anion Gap 6.4 mEq/L (5-15); Aspartate Amino Transferase 34 U/L (14-36); Bilirubin,Total 0.4 mg/dl (0.2-1.3); Blood Urea Nitrogen 11 mg/dl (7-17); Calcium 7.4 mg/dl (8.4-10.2); Carbon Dioxide 32 mmol/L (22.0-30.0); Chloride 96 mmol/L (98-107); Creatinine Clearance Estimated 51 mL/min (50-200); Estimated Glomerular Filt Rate 40 ml/min (>60); GFR (African American) 48 ML/MIN (>60); Globulin 3.3 g/dL (1.3-3.2); Glucose 159 mg/dl (74-100); Sodium 132 mmol/L (136-145); Total Protein,Serum 5.3 g/dl (6.3-8.2)
--- NOTE | 2023-08-01 15:53 | PC.NURSE ---
Addendum entered by Aranza Preston RN 08/01/23 15:58: WILL OBTAIN PICTURES OF COCCYX WHEN ABLE. PROVIDED WITH WARM BLANKETS. Original Note: PT CLEANED UP BY STAFF. AND DAUGHTER AT BEDSIDE. [facility] CATH 16 NIUEAN PLACED AND URINE SENT TO LAB. PT TOLERATED WELL. BLANCHABLE REDNESS NOTED TO COCCYX WITH 2 STAGE 1 PRESSURE ULCERS NOTED IN THAT AREA. PT CHANGED. BED IN LOWEST POSITION. CALL LIGHT WITHIN REACH.
--- NOTE | 2023-08-01 16:08 | XR_ITS ---
FINAL REPORT CLINICAL HISTORY: cough/shock COMPARISON: 01/22/2021 FINDINGS: A single portable view of the chest was obtained. The heart size and pulmonary vascularity are within normal limits. The mediastinum is within normal limits. No acute pulmonary abnormality is identified. Spinal rods are present. IMPRESSION: No active cardiopulmonary disease. Reviewed, Interpreted and Dictated by Sae Junior III, MD Transcribed by Kanika Caldera Authenticated and [facility]
[2023-08-01 16:10] LABS: Troponin I < 0.01 ng/ml (0.00-0.034)
[2023-08-01 16:11] LABS: Potassium 2.4 mmoL/L (3.5-5.1)
--- NOTE | 2023-08-01 16:16 | PC.NURSE ---
RADIOLOGY AT BEDSIDE
[2023-08-01 16:18] LABS: Microscopic, Urine URINE MICROSCOPIC (MICROSCOPIC)
[2023-08-01 16:32] LABS: Appearance,Urine CLEAR (Clear); Bilirubin,Urine Negative (Negative); Blood, Urine Negative (Negative); Color,Urine YELLOW (Yellow); Glucose,Urine (UA) Negative (Negative); Ketones,Urine Negative (Negative); Leukocyte Esterase,Urine Negative (Negative); Nitrate,Urine Negative (Negative); Protein,Urine Negative (Negative); Specific Gravity, Urine <= 1.005 (1.005-1.030); Urobilinogen,Urine 0.2 EU/dl (0.2)
[2023-08-01 16:35] LABS: Magnesium 1.3 mg/dl (1.6-2.3)
--- NOTE | 2023-08-01 16:38 | PC.NURSE ---
Dr. aiken s/w hospitalist for admission
--- NOTE | 2023-08-01 16:43 | PC.NURSE ---
felt finishing supervisor notified for bed assignment
[2023-08-01 16:55] LABS: WBC,Urine Occasional #/hpf (0-3)
--- NOTE | 2023-08-01 16:57 | CT_ITS ---
PROCEDURE INFORMATION: Exam: CT Chest Without Contrast; Diagnostic Exam date and time: 08/01/2023 5:12 PM Age: 77 years old Clinical indication: Cough; Additional info: Shock, copd with cough, TECHNIQUE: Imaging protocol: Diagnostic computed tomography of the chest without contrast. Radiation optimization: All CT scans at this facility use at least one of these dose optimization techniques: automated exposure control; mA and/or kV adjustment per patient size (includes targeted exams where dose is matched to clinical indication); or iterative reconstruction. REPORTING DATA: Count of CT and Cardiac NM exams in prior 12 months: This patient has received 0 known CTs and 0 known cardiac nuclear medicine studies in the 12 months prior to the current study. COMPARISON: CR XR CHEST PORTABLE 08/01/2023 4:33 PM FINDINGS: Lungs: Small-moderate bilateral pleural effusions with bibasilar regions of subsegmental atelectasis. Bronchiectasis with peribronchial thickening and mucous plugging most pronounced right lung base. Calcified granuloma left lung base Pleural spaces: See Lungs finding. Heart: Unremarkable. No cardiomegaly. No pericardial effusion. Coronary arteries: Coronary artery calcifications Lymph nodes: Unremarkable. No enlarged lymph nodes. Vasculature: Regions of atherosclerotic vascular calcification involving the aortic arch. Bones/joints: posterior spinal fusion with pedicle screw placement thoracolumbar spine (T8 through L1). Soft tissues: Unremarkable. IMPRESSION: 1. Small-moderate bilateral pleural effusions with bibasilar regions of subsegmental atelectasis. 2. Bronchiectasis with peribronchial thickening and mucous plugging most pronounced right lung base.
[2023-08-01 16:58] LABS: Coronavirus 19, PCR Not Detected (NotDetected); Influenza A, PCR Not Detected (NotDetected); Influenza B, PCR Not Detected (NotDetected)
--- NOTE | 2023-08-01 17:03 | PC.NURSE ---
attempted to call report to Theresa BERRY. will call back shortly.
--- NOTE | 2023-08-01 17:18 | PC.NURSE ---
1717 attempted to call and get report, primary RN unavailable.
--- NOTE | 2023-08-01 17:45 | PC.NURSE ---
called report to shannon ruvalcaba
--- NOTE | 2023-08-01 18:38 | EXP.HP ---
History of Present Illness *Admission Date: 08/01/23 *Reason for visit:: generalized weakness [facility] Disclaimer: The information contained in this section may have been updated after the patient was seen, as this information can be updated by other users. Social History Smoking Status: Never smoker alcohol intake: never current occupational status: retired Travel in the last 8 weeks: None household members: spouse Review of Systems Review of Systems Review of systems:: pertinent systems reviewed and negative unless documented below Meds Home Medications and Allergies Home Medications Medication Instructions Recorded Confirmed Type allopurinol 100 mg tablet 100 mg PO DAILY gout 12/06/20 08/01/23 History aspirin 81 mg chewable tablet 81 mg PO DAILY Blood thinner 12/06/20 08/01/23 History budesonide-formoterol HFA 80 10.2 gm inhalation NEEDED PRN 12/06/20 08/01/23 History mcg-4.5 mcg/actuation aerosol copd inhaler xwxtugysic-enlehgiqoqjah-ujbydczq 50 - 325 mg PO NEEDED PRN pain 12/06/20 08/01/23 History 50 mg-325 mg-40 mg tablet furosemide 20 mg tablet 20 mg PO DAILY Edema 12/06/20 08/01/23 History glimepiride 4 mg tablet 4 mg PO DAILY Diabetes 12/06/20 08/01/23 History hydrocodone 10 mg-acetaminophen 10 - 325 mg PO BID Pain 12/06/20 08/01/23 History 325 mg tablet insulin aspar prt-insulin aspart 70 units SQ DAILY Diabetes 12/06/20 08/01/23 History 100 unit/mL (70-30) subcutaneous soln levothyroxine 175 mcg tablet 175 mcg PO DAILY thyroid 12/06/20 08/01/23 History losartan 50 mg tablet 50 mg PO DAILY blood pressure 12/06/20 08/01/23 History morphine 20 mg capsule,extended 15 mg PO BID Pain 12/06/20 08/01/23 History release pellets pravastatin 20 mg tablet 20 mg PO DAILY Cholesterol 12/06/20 08/01/23 History propranolol 60 mg tablet 60 mg PO DAILY blood pressure 12/06/20 08/01/23 History tizanidine 4 mg tablet 4 mg PO BID Anxiety 12/06/20 08/01/23 History New Prescriptions to Start Prescriptions: Allergies Allergy/AdvReac Type Severity Reaction Status Date / Time artichoke Allergy Severe S-SWELLS-OR Verified 08/01/23 16:08 [From ARTICHOKE (FOOD/DRUG)] AL/THROAT aspartame Allergy Severe S-SWELLS-OR Verified 08/01/23 16:08 [From ASPARTAME (FOOD/DRUG)] AL/THROAT egg [From EGGS (FOOD/DRUG)] Allergy Severe S-SWELLS-OR Verified 08/01/23 16:08 AL/THROAT amitriptyline Allergy Intermediate HALLUCINATI Verified 08/01/23 16:08 ONS cefprozil [From Cefzil] Allergy Unknown Verified 08/01/23 16:08 gabapentin Allergy Unknown Verified 08/01/23 16:08 Iodinated Contrast Media Allergy Unknown Verified 08/01/23 16:08 [Iodinated Contrast Media - IV Dye] lincomycin [From Lincocin] Allergy Unknown Verified 08/01/23 16:08 loratadine Allergy Unknown Verified 08/01/23 16:08 terfenadine [From Seldane] Allergy Unknown Verified 08/01/23 16:08 metformin AdvReac Mild NA-DIARRHEA Verified 08/01/23 16:08 metoclopramide AdvReac Mild VISION Verified 08/01/23 16:08 PROBLEMS From ASPARTAME (FOOD/DRUG) Allergy Severe S-SWELLS-OR Uncoded 09/17/17 14:38 AL/THROAT From EGGS (FOOD/DRUG) Allergy Severe S-SWELLS-OR Uncoded 09/17/17 14:38 AL/THROAT Exam Data for Last 24 hours Vital signs and Labs for Last 24 Hours: Temp Pulse Resp BP Pulse Ox O2 Del Method O2 Flow Rate 97.7 F 54 L 20 148/65 H 94 L Nasal Cannula 2 08/01/23 18:22 08/01/23 18:22 08/01/23 18:22 08/01/23 18:22 08/01/23 18:22 08/01/23 18:22 08/01/23 18:22 Laboratory Results - last 24 hr 08/01/23 15:20: WBC 14.1 H, RBC 3.95 L, Hgb 11.8 L, Hct 34.8 L, MCV 88.0, MCH 29.9, MCHC 34.0, RDW 15.2, Plt Count 406, MPV 8.3, Neut % (Auto) 74.2, Lymph % (Auto) 20.6, [place] % (Auto) 3.0, Eos % (Auto) 1.8, Baso % (Auto) 0.4, Neut # (Auto) 10.5 H, Lymph # (Auto) 2.9, [place] # (Auto) 0.4, Eos # (Auto) 0.3, Baso # (Auto) 0.1, PT 14.1 H, INR 1.33 H, APTT 29.4, Sodium 132 L, Potassium 2.4 L*, Chloride 96 L
[2023-08-01 19:33] LABS: Lactic Acid 1.7 mmol/L (0.7-2.1)
[2023-08-01 19:47] LABS: Troponin I < 0.01 ng/ml (0.00-0.034)
[2023-08-01 19:51] LABS: Procalcitonin 0.102 ng/mL (0.0-2.0)
[2023-08-01 21:11] LABS: POC Glucose,Bedside 139 (70-110)
--- NOTE | 2023-08-01 21:16 | EXP.SURG.CON ---
History of Present Illness *Admission Date: 08/01/23 *Reason for visit:: Central line placement *History of present illness: Patient is a 77-year-old female from [place] with medical history of chronic kidney disease, COPD on home oxygen, colonic fecal impaction, diabetes, chronic back pain with previous pain pump placement. She has numerous drug allergies. For apparently 2 weeks patient has had upper respiratory symptoms with cough. 2 days prior to admission she had precipitous decline with inability to complete activities of daily living and became anuric. Patient was noted to be hemodynamically unstable upon arrival to the emergency department. Evaluation in the emergency department revealed leukocytosis. There was concern for sepsis. She was given broad-spectrum antibiotics, crystalloid infusion, and started on vasopressors. Patient has had continued tenuous blood pressure despite being on vasopressors and multiple antibiotics and has had minimal peripheral venous access and therefore surgical consultation was obtained this evening for placement of central line. CT scan of the chest revealed small to moderate bilateral pleural effusions with bibasilar regions of subtle segmental atelectasis. Bronchiectasis with peribronchial thickening and mucous plugging most pronounced in the right lung base. [facility] Disclaimer: The information contained in this section may have been updated after the patient was seen, as this information can be updated by other users. Medical History (Updated 08/01/23 @ 22:15 by Sae Neri MD) Diabetes Hyperlipidemia Hypertension Liver cancer Surgical History History of appendectomy History of cholecystectomy History of colonoscopy History of hysterectomy Family History (Updated 08/01/23 @ 19:02 by Mey Gong RN) No significant family history Social History (Updated 08/01/23 @ 19:03 by Mey Gong RN) Smoking Status: Never smoker alcohol intake: never current occupational status: retired Travel in the last 8 weeks: None household members: spouse Review of Systems Review of Systems Review of systems:: pertinent systems reviewed and negative unless documented below Meds Home Medications and Allergies Home Medications Medication Instructions Recorded Confirmed Type allopurinol 100 mg tablet 100 mg PO DAILY gout 12/06/20 08/01/23 History aspirin 81 mg chewable tablet 81 mg PO DAILY Blood thinner 12/06/20 08/01/23 History budesonide-formoterol HFA 80 10.2 gm inhalation NEEDED PRN 12/06/20 08/01/23 History mcg-4.5 mcg/actuation aerosol copd inhaler vsgbqxdusc-tippjtzhkkoff-fmlkyyku 50 - 325 mg PO NEEDED PRN pain 12/06/20 08/01/23 History 50 mg-325 mg-40 mg tablet furosemide 20 mg tablet 20 mg PO DAILY Edema 12/06/20 08/01/23 History glimepiride 4 mg tablet 4 mg PO DAILY Diabetes 12/06/20 08/01/23 History hydrocodone 10 mg-acetaminophen 10 - 325 mg PO BID Pain 12/06/20 08/01/23 History 325 mg tablet insulin aspar prt-insulin aspart 70 units SQ DAILY Diabetes 12/06/20 08/01/23 History 100 unit/mL (70-30) subcutaneous soln levothyroxine 175 mcg tablet 175 mcg PO DAILY thyroid 12/06/20 08/01/23 History losartan 50 mg tablet 50 mg PO DAILY blood pressure 12/06/20 08/01/23 History morphine 20 mg capsule,extended 15 mg PO BID Pain 12/06/20 08/01/23 History release pellets pravastatin 20 mg tablet 20 mg PO DAILY Cholesterol 12/06/20 08/01/23 History propranolol 60 mg tablet 60 mg PO DAILY blood pressure 12/06/20 08/01/23 History tizanidine 4 mg tablet 4 mg PO BID Anxiety 12/06/20 08/01/23 History New Prescriptions to Start Prescriptions: Allergies Allergy/AdvReac Type Severity Reaction Status Date / Time artichoke Allergy Severe S-SWELLS-OR Verified 08/01/23 16:08 [From ARTICHOKE (FOOD/DRUG)] AL/THROAT aspartame Allergy Severe S-SWELLS-OR Verified 08/01/23 16:08 [From ASPARTA
[2023-08-01 21:58] LABS: Troponin I 0.02 ng/ml (0.00-0.034)
--- NOTE | 2023-08-01 22:02 | XR_ITS ---
PROCEDURE INFORMATION: Exam: XR Chest Exam date and time: 08/01/2023 10:07 PM Age: 77 years old Clinical indication: Other vascular access device placement or adjustment; Other: Central line; Additional info: Central line placement TECHNIQUE: Imaging protocol: Radiologic exam of the chest. Views: 1 view. COMPARISON: CT CHEST WO CON 08/01/2023 5:12 PM FINDINGS: Tubes, catheters and devices: Right subclavian central venous line with its tip projecting in the mid to distal SVC distribution. Lungs: Normal pulmonary expansion. Pulmonary vasculature grossly normal. No gross pulmonary infiltrates or edema pattern. Pleural spaces: No pleural effusion. No pneumothorax. Heart/Mediastinum: Heart size normal. No tracheal/mediastinal shift. Vasculature: Mild aortic ectasia/tortuosity. Bones/joints: No acute osseous abnormalities are identified. Thoracolumbar spinal fusion hardware without gross hardware complication. Intraperitoneal space: Right upper quadrant surgical clips suggest prior cholecystectomy. IMPRESSION: 1. Right subclavian central venous line placed with its tip in the mid to distal SVC. No pneumothorax. 2. No acute cardiopulmonary process is evident.
--- NOTE | 2023-08-01 22:15 | P.OP_ITS ---
Date of procedure: 08/01/23 Pre-op Diagnosis:: Poor venous access Post-op Diagnosis:: Same Procedure performed:: Placement of 7 Dominican nontunneled triple-lumen catheter right subclavian vein Surgeon:: Sae Neri MD Anesthesia: local Estimated blood loss (mL): 15 Operative findings:: Unable to cannulate left subclavian vein Operative note:: Consent was obtained. Patient was positioned in Trendelenburg position. Left neck and chest were prepped and draped in the standard surgical fashion. Local anesthetic was infiltrated inferior to the left clavicle at an attempt at left subclavian vein cannulation. Several passes were made with the 18-gauge needle medial to the deltopectoral groove. Left subclavian vein could not be cannulated. Local anesthetic was infiltrated then for left internal jugular attempts. Anesthesia was infiltrated near the bifurcation of the sternocleidomastoid. Limited attempt was made at aspiration internal jugular vein using the 22-gauge finder needle. However landmarks were difficult to identify and therefore no additional attempts were made at this location. Patient was then reprepped and draped for right-sided placement. Local anesthetic was infiltrated inferior to the right clavicle. Needle was inserted and with 1 or 2 passes there was good return of venous blood. Guidewire was inserted. Small incision was made at the insertion site. 7 Dominican triple-lumen catheter was inserted over the guidewire using Seldinger technique. Secured at approximately the 14 cm lu with 2-0 nylon suture. Clean dry sterile dressing was applied. All ports aspirated and flushed without difficulty. Chest x-ray was performed at the completion of the procedure which showed good placement of the catheter with the tip near the atriocaval junction and no obvious evidence of pneumothorax. Condition: stable Disposition: no change Complications:: None immediately apparent
[2023-08-01 23:00] LABS: POC Glucose,Bedside 170 (70-110)
[2023-08-02] VITALS (28 sets, daily range): BP systolic 86–132; BP diastolic 38–74; PULSE 60–73; RESP 10–31; TEMP 36.8–37.1; O2SAT 95–100; BMI 28.7
[2023-08-02 05:56] LABS: POC Glucose,Bedside 195 (70-110)
[2023-08-02 06:23] LABS: Alanine Aminotransferase 22 U/L (12-78); Albumin/Globulin Ratio 0.6 (1.1-1.8); Alkaline Phosphatase 175 U/L (38-126); Anion Gap 13.7 mEq/L (5-15); Aspartate Amino Transferase 44 U/L (14-36); Bilirubin,Total 0.5 mg/dl (0.2-1.3); Blood Urea Nitrogen 13 mg/dl (7-17); Calcium 7.8 mg/dl (8.4-10.2); Carbon Dioxide 24 mmol/L (22.0-30.0); Chloride 99 mmol/L (98-107); Creatinine Clearance Estimated 43 mL/min (50-200); Estimated Glomerular Filt Rate 40 ml/min (>60); GFR (African American) 48 ML/MIN (>60); Globulin 3.1 g/dL (1.3-3.2); Glucose 212 mg/dl (74-100); Magnesium 1.6 mg/dl (1.6-2.3); Potassium 3.7 mmoL/L (3.5-5.1); Sodium 133 mmol/L (136-145); Total Protein,Serum 5.1 g/dl (6.3-8.2)
[2023-08-02 06:45] LABS: Basophils % 0.1 % (0.1-2.0); Hematocrit 34.7 % (37.0-47.0); Hemoglobin 11.2 g/dL (12.2-16.2); Lymphocytes # 2.1 K/mm3 (0.7-4.5); Lymphocytes % 12.5 % (10-50); Mean Corpuscular HGB Conc 32.4 g/dL (31.8-35.4); Mean Corpuscular Hemoglobin 28.9 pg (27.0-31.2); Mean Corpuscular Volume 89.4 fl (81-99); Mean Platelet Volume 8.2 fl (7.4-10.4); Monocytes # 0.1 K/mm3 (0.1-1.0); Monocytes % 0.8 % (1.7-9.3); Neutrophils # 14.8 K/mm3 (1.8-7.8); Neutrophils % 86.6 % (37.0-80.0); Platelet Count 509 K/mm3 (142-424); Red Blood Count 3.88 M/mm3 (4.20-5.40); Red Cell Distribution Width 15.2 % (11.5-17.5); White Blood Count 17.1 K/mm3 (4.8-10.8)
[2023-08-02 06:50] LABS: MANUAL DIFFERENTIAL MANUAL DIFFERENTIAL (MANUAL DIFF)
--- NOTE | 2023-08-02 07:58 | PC.NURSE ---
pt pulled up in bed to eat breakfast, pt's blood pressure had decreased so levophed titrated to 4mcg/min, tried to titrate back down to 3mcg/min after pt had been awake and eating but bp dipped to 88/47 (60) when tried to decrease back to 3mcg/min, so continued levophed at 4mcg/min and bp 106/52 (70)
--- NOTE | 2023-08-02 08:05 | EXP.PHA.CONS ---
Pharmacy Consult Date: 08/02/23 Time: 08:05 Referring provider: DR KANG Reason for Consult:: VANCOMYCIN DOSING CONSULT Allergies Allergy/AdvReac Type Severity Reaction Status Date / Time artichoke Allergy Severe S-SWELLS-OR Verified 08/01/23 16:08 [From ARTICHOKE (FOOD/DRUG)] AL/THROAT aspartame Allergy Severe S-SWELLS-OR Verified 08/01/23 16:08 [From ASPARTAME (FOOD/DRUG)] AL/THROAT egg [From EGGS (FOOD/DRUG)] Allergy Severe S-SWELLS-OR Verified 08/01/23 16:08 AL/THROAT amitriptyline Allergy Intermediate HALLUCINATI Verified 08/01/23 16:08 ONS cefprozil [From Cefzil] Allergy Unknown Verified 08/01/23 16:08 gabapentin Allergy Unknown Verified 08/01/23 16:08 Iodinated Contrast Media Allergy Unknown Verified 08/01/23 16:08 [Iodinated Contrast Media - IV Dye] lincomycin [From Lincocin] Allergy Unknown Verified 08/01/23 16:08 loratadine Allergy Unknown Verified 08/01/23 16:08 terfenadine [From Seldane] Allergy Unknown Verified 08/01/23 16:08 metformin AdvReac Mild NA-DIARRHEA Verified 08/01/23 16:08 metoclopramide AdvReac Mild VISION Verified 08/01/23 16:08 PROBLEMS From ASPARTAME (FOOD/DRUG) Allergy Severe S-SWELLS-OR Uncoded 09/17/17 14:38 AL/THROAT From EGGS (FOOD/DRUG) Allergy Severe S-SWELLS-OR Uncoded 09/17/17 14:38 AL/THROAT Home Medications Medication Instructions Recorded Confirmed Type aspirin 81 mg chewable tablet 81 mg PO DAILY Heart Health 12/06/20 08/01/23 History pravastatin 20 mg tablet 20 mg PO DAILY Cholesterol 12/06/20 08/01/23 History propranolol 60 mg tablet 60 mg PO DAILY High Blood Pressure 12/06/20 08/01/23 History allopurinol 300 mg tablet 300 mg PO DAILY gout 08/02/23 08/02/23 History furosemide 40 mg tablet 40 mg PO DAILY Fluid 08/02/23 08/02/23 History insulin human U-100 NPH-regulr 70 unit SQ DAILY Diabetes 08/02/23 08/02/23 History 70-30 mix 100 unit/mL subcutaneous susp (Novolin 70/30 U-100 Insulin) levothyroxine 200 mcg tablet 200 mcg PO DAILY Thyroid 08/02/23 08/02/23 History losartan 100 mg tablet 100 mg PO DAILY High Blood Pressure 08/02/23 08/02/23 History potassium chloride 20 mEq 20 meq PO DAILY Supplement 08/02/23 08/02/23 History tablet,extended release(part/cryst) semaglutide 2 mg/dose (8 mg/3 mL) 2 mg SQ WEEKLY Diabetes 08/02/23 08/02/23 History subcutaneous pen injector (Ozempic) sucralfate 1 gram tablet 1 g PO ACHS Acid Reflux 08/02/23 08/02/23 History New Prescriptions to Start Prescriptions: Height: 1.63 m Weight: 76.232 kg Laboratory Results:: Laboratory Results - last 24 hr 08/01/23 15:20: WBC 14.1 H, RBC 3.95 L, Hgb 11.8 L, Hct 34.8 L, MCV 88.0, MCH 29.9, MCHC 34.0, RDW 15.2, Plt Count 406, MPV 8.3, Neut % (Auto) 74.2, Lymph % (Auto) 20.6, [place] % (Auto) 3.0, Eos % (Auto) 1.8, Baso % (Auto) 0.4, Neut # (Auto) 10.5 H, Lymph # (Auto) 2.9, [place] # (Auto) 0.4, Eos # (Auto) 0.3, Baso # (Auto) 0.1, PT 14.1 H, INR 1.33 H, APTT 29.4, Sodium 132 L, Potassium 2.4 L*, Chloride 96 L, Carbon Dioxide 32 H, Anion Gap 6.4, BUN 11, Creatinine 1.30 H, Estimated Creat Clear 51, Estimated GFR 40 L, Est GFR ( Amer) 48 L, Glucose 159 H, Lactate 2.0, Calcium 7.4 L, Magnesium 1.3 L, Total Bilirubin 0.4, AST 34, ALT 23, Alkaline Phosphatase 177 H, Troponin I < 0.01, Total Protein 5.3 L D, Albumin 2.0 L, Globulin 3.3 H, Albumin/Globulin Ratio 0.6 L 08/01/23 15:23: VBG pH 7.40, VBG pCO2 45.6, VBG pO2 76.8 H, VBG HCO3 27.9, VBG Total CO2 29.3 H, VBG O2 Saturation 95.1 H, VBG Base Excess 3.1 H 08/01/23 15:41: Urine Color Yellow, Urine Appearance Clear, Urine pH 6.0, Ur Specific [place] <= 1.005, Urine Protein Negative, Urine Glucose (UA) Negative, Urine Ketones Negative, Urine Blood Negative, Urine Nitrate Negative, Urine Bilirubin Negative, Urine Urobilinogen 0.2, Ur Leukocyte Esterase Negative, Urine RBC None, Urine WBC Occasional, Ur Squamous Epith Cells 10-20, Urine Bacteria None 08/01/23 16:54: SARS-CoV-2 (PCR) Not detected, Influenza A Untype
[2023-08-02 08:14] LABS: Lymphocytes % 8 % (10-50); Neutrophils % 92 % (42-76); Total Cells Counted 100
[2023-08-02 08:15] LABS: Platelet Estimate Moderate Increase; RBC Morphology Normal
--- NOTE | 2023-08-02 09:07 | PC.NURSE ---
COURTESY TECH NOTE; ROUNDED ON PT 0830, PT DENIED NEED FOR DRINK, ASSISTANCE WITH RESTROOM, AND NEED TO REPOSITION IN BED. CALL LIGHT WITHIN REACH, NO FURTHER REQUESTS AT THIS TIME MARIE MCCULLOUGH
--- NOTE | 2023-08-02 09:23 | PC.NURSE ---
pt had 22G PIV in right foot, removed at this time, pt admitted with that IV possibly placed by EMS
--- NOTE | 2023-08-02 09:40 | HMH.PHAINT1 ---
Pharmacy Intervention Comments: MEDICATION RECONCILIATION COMPLETED ON PATIENT USING EXTERNAL FILL HISTORY FROM PHARMACY, LIST FROM PCP OFFICE, AND PATIENT INTERVIEW. -JUAN STEINER, LYNNED
--- NOTE | 2023-08-02 10:01 | HMH.PTWOUND ---
Rehab Inpt Wound Evaluation Rehab IP Wound Evaluation Start: 08/01/23 18:41 Freq: ONCE Status: Active Protocol: Document 08/02/23 09:35 NOEMY (Rec: 08/02/23 09:52 NOEMY [id number]) Rehab PT Wound Assessment Patient Status Premedicated Prior to Dressing Change No: No change necessary at this time. Subjective Subjective Patient is a 77 year old female admitted to [facility] 08/01/23 . She reports that she has been sick and unable to get out of bed for the past two or three weeks. Patient was previously ambulatory with a RW at home, requiring caregiver assistance for safety. I just feel really weak, and the wound on my butt is what really hurts. She is currently receiving IV antibiotics for septic shock. Patient has 2 small ulcers, non-draining. L buttock 2cm/ 3cm, R buttock 2cm/2cm. Wound Left Sacrum Wound Type Pressure Ulcer Is This a Chronic Wound Yes Wound Staging Stage II Query Text:Stage I - Unbroken, red skin, no blanching. Stage II - Skin broken, superficial skin loss involving epidermis alone or also dermis. Partial loss of skin layers. Stage III - Pressure area involves epidermis, dermis and subcutaneous tissue, full thickness skin loss. Stage IV - Pressure area involves epidermis, subcutaneous tissue, bone and other supportive tissue. Full thickness skin loss with extensive destruction of underlying tissue and structures. Superficial wound not involving tendon, w/o infection/ischemia capsule or bone Wound Length (cm) 2 Wound Width (cm) 3 Wound Bed Appearance Harrah Wound Margins Description Well Defined Surrounding Tissue Appearance Harrah Wound Drainage Description None Drainage Amount None Drainage Odor No Odor Dressing Status Dry & Intact Primary Dressing Adhesive Dressing Plan/Recommendation Comment Continue with current dressing type. Continue with patient repositioning to avoid progression. Addison Hobbs
--- NOTE | 2023-08-02 10:48 | SW/DCPLANNER ---
Addendum entered by Sierra Tellez 08/05/23 12:14: Per Nguyen Miller patient has been approved SNF level of care. I have updated patient, nursing staff and MD. Patient will discharge today. Addendum entered by Sierra Tellez 08/05/23 09:15: Nguyen clifton/ Claude Miller stated that auth will be started today. I will continue to follow up w/ princess, Claude Miller and MD. Per Dr Franks patient is medically stable for discharge. Addendum entered by Sierra Tellez 08/05/23 07:59: Updated patient information has been faxed to Nguyen Miller. Original Note: I spoke w/ this patient and her family regarding plans once medically stable for discharge. Patient currently resides at her home in [place] w/ her and daughter. PT/OT has been ordered for today. Patient and I discussed different discharge plans based on PT/OT recommendations: home w/ home health vs placement. Patient did express an interest in [place] or [facility] (only if [facility] can not accept) if placement is necessary. Patient is agreeable for information to be faxed to Nguyen Miller at this time. I will follow up w/ Nguyen once information is reviewed. Discharge date is unknown at this time.
--- NOTE | 2023-08-02 10:50 | PC.NURSE ---
bp 128/49 (75) decreased pt's levophed to 3mcg/min
[2023-08-02 10:52] LABS: POC Glucose,Bedside 362 (70-110)
--- NOTE | 2023-08-02 11:49 | EXP.PULM.CON ---
History of Present Illness History of present illness: Ms. Wesley is a 77-year-old male with reported possible history diabetes mellitus, CKD, COPD on 2 L chronic presented to the hospital after feeling sick for the last 2 to 3 weeks And found to be in shock needing vasopressor support upon admission pulmonary was called for further evaluation and management [facility] Disclaimer: The information contained in this section may have been updated after the patient was seen, as this information can be updated by other users. Medical History (Updated 08/02/23 @ 13:26 by Kiki Sinclair MD) Acute and chronic respiratory failure with hypoxia Diabetes Hyperlipidemia Hypertension Liver cancer Pleural effusion, bilateral Shock Surgical History History of appendectomy History of cholecystectomy History of colonoscopy History of hysterectomy Family History (Updated 08/01/23 @ 19:02 by Mey Gong RN) Other No significant family history Social History (Updated 08/01/23 @ 19:03 by Mey Gong RN) Smoking Status: Never smoker alcohol intake: never current occupational status: retired Travel in the last 8 weeks: None household members: spouse Review of Systems Constitutional Constitutional: Reports anorexia, Reports body ache(s) and Reports fatigue Eyes Eyes: Denies eye discharge, Denies dry eyes, Denies irritation and Denies itchy eyes ENT Ears, Nose, Mouth, and Throat: Denies epistaxis, Denies facial pain, Denies lip swelling and Denies throat swelling *Cardiovascular Cardiovascular: Reports dyspnea and Reports dyspnea on exertion *Respiratory Respiratory: Reports chest congestion, Reports cough, Reports dyspnea, Reports dyspnea on exertion, Reports excessive phlegm production and Reports wheezing *Gastrointestinal Gastrointestinal: Denies abdominal pain, Denies belching and Denies cramping *Musculoskeletal Musculoskeletal: Reports back pain, Reports myalgias and Reports other (No small joint swelling or Pain) Psychiatric Psychiatric: Denies homicidal ideation and Denies suicidal ideation Endocrine Endocrine: Reports fatigue and Denies heat intolerance Hematologic/Lymphatic Hematologic/Lymphatic: Denies easy bleeding and Denies lymphadenopathy Allergic/Immunologic Allergic/Immunologic: Denies itchy eyes, Denies lip swelling, Denies throat swelling and Reports wheezing Pulmonology Exam Inpatient Vital signs and Labs for Last 24 Hours: Temp Pulse Resp BP Pulse Ox O2 Del Method O2 Flow Rate 98.8 F 70 16 105/56 L 100 Nasal Cannula 2 08/02/23 08:00 08/02/23 10:00 08/02/23 10:00 08/02/23 10:00 08/02/23 10:00 08/02/23 10:00 08/02/23 10:00 Laboratory Results - last 24 hr 08/01/23 15:20: WBC 14.1 H, RBC 3.95 L, Hgb 11.8 L, Hct 34.8 L, MCV 88.0, MCH 29.9, MCHC 34.0, RDW 15.2, Plt Count 406, MPV 8.3, Neut % (Auto) 74.2, Lymph % (Auto) 20.6, [place] % (Auto) 3.0, Eos % (Auto) 1.8, Baso % (Auto) 0.4, Neut # (Auto) 10.5 H, Lymph # (Auto) 2.9, [place] # (Auto) 0.4, Eos # (Auto) 0.3, Baso # (Auto) 0.1, PT 14.1 H, INR 1.33 H, APTT 29.4, Sodium 132 L, Potassium 2.4 L*, Chloride 96 L, Carbon Dioxide 32 H, Anion Gap 6.4, BUN 11, Creatinine 1.30 H, Estimated Creat Clear 51, Estimated GFR 40 L, Est GFR ( Amer) 48 L, Glucose 159 H, Lactate 2.0, Calcium 7.4 L, Magnesium 1.3 L, Total Bilirubin 0.4, AST 34, ALT 23, Alkaline Phosphatase 177 H, Troponin I < 0.01, Total Protein 5.3 L D, Albumin 2.0 L, Globulin 3.3 H, Albumin/Globulin Ratio 0.6 L 08/01/23 15:23: VBG pH 7.40, VBG pCO2 45.6, VBG pO2 76.8 H, VBG HCO3 27.9, VBG Total CO2 29.3 H, VBG O2 Saturation 95.1 H, VBG Base Excess 3.1 H 08/01/23 15:41: Urine Color Yellow, Urine Appearance Clear, Urine pH 6.0, Ur Specific [place] <= 1.005, Urine Protein Negative, Urine Glucose (UA) Negative, Urine Ketones Negative, Urine Blood Negative, Urine Nitrate Negative, Urine Bilirubin Negative, Urine Urobilinogen 0.2, Ur Leukocyte
--- NOTE | 2023-08-02 11:49 | HMH.OTEV ---
OT Inpatient Evaluation Rehab OT IP Evaluation Start: 08/02/23 10:17 Freq: ONCE Status: Active Protocol: Document 08/02/23 11:32 [facility] (Rec: 08/02/23 11:49 [facility] [id number]) Rehab OT IP Assessment Subjective History Pt oriented x 3 on arrival. Pt's and daughter present and supportive. Pt admitted on 08/01/23 due to septic shock and generalized weakness. Pt and family explain pt's prior level of functioning. Pt was requiring assistance from and/ or daughter with dressing and bathing. Pt reports normally she was able to transfer herself using a rolling walker , but has been unable to do so recently due to continued weakness. Pt was dependent upon family for completion of all IADLs. Pt's daughter has been living with patient and her to provide assistance as well. Pt has a medical history of: diabetes mellitus COPD on 2 L nasal cannula oxygen at home presented to hospital after being feeling sick for past 2 to 3 weeks. Subjective I am just really weak. Objective Patient Orientation Person,Place,Birthday Upper Extremity Gross ROM WFL Bed Mobility bed mobility-scooting,bed mobility - supine/sit Assist Level Minimal x 2 (25% assist) Rehab OT IP prob,goals,plan Problems Date of Evaluation: 08/02/23 OT IP Problems Bed Mobility,Transfers,Balance ,Self care,Safety Rehab Potential Rehab Potential Good Equipment Needs Assistive Devices Rolling / Wheeled Walker Plan OT intervention Plan Bed Mobility,Transfers,Balance ,Self care,Safety,Therapeutic Exercise OT Plan Frequency BID Duration LOS Discharge Goals Bed Mobility Ability Assistance x1 Sit to Stand Chair Transfer Ability Minimal x 1 (25% assist) Chair Transfer Ability Minimal x 1 (25% assist) Chair Transfer Technique Sit to/fro
--- NOTE | 2023-08-02 11:51 | HMH.PTEV ---
Physical Therapy Evaluation Rehab PT IP Evaluation Start: 08/02/23 10:17 Freq: ONCE Status: Active Protocol: Document 08/02/23 11:42 NOEMY (Rec: 08/02/23 11:51 NOEMY [id number]) Subjective/History History History Patient is a 77 year old female admitted to [facility] 08/01/23 secondary to septic shock. Patient reports that she has been sick for the past 2-3 weeks, and been unable to get out of bed. She is currently receiving IV antibiotics. She previously was ambulatory with RW at home. She requires assisstanace with all ADL's at this time from patients /daughter. Subjective Subjective I just haven't been able to do anything really. Since I' ve gotten sick. New diagnosis of cancer in past 12 No months? Rehab PT IP Eval Objective Appearance Patient Behavior Appropriate,Cooperative Patient Orientation Person,Place,Birthday Difficulty following instructions none Speech Pattern Clear,Appropriate Ambulation Patient Able to Ambulate No Balance Ability to Arise Unable Sitting Balance Leans or slides in chair Dynamic Sitting Balance Ability Poor Transfers Bed Transfer Ability Minimal x 1 (25% assist) Pain Back Pain Intensity 8 ROM All Extremities PT ROM Status WFL MMT All Extremities PT MMT ABN Abnormal MMT Grade 3/5 Rehab PT IP prob,goals,plan Problems Date of Evaluation: 08/02/23 PT IP Problems Bed Mobility,Transfers,Gait, Balance,Self care,Safety Rehab Potential Rehab Potential Fair Equipment Needs Assistive Devices None / NA Plan PT Intervention Plan Bed Mobility,Transfers,Gait, Balance,Self care,Safety, Therapeutic Exercise PT Plan Frequency BID Duration LOS Discharge Goals Bed Transfer Ability Contact Guard/Hand Hold Sit to Stand Chair Transfer Ability Contact Guard/Hand Hold Ambulation Assistive Device Rolling Walker Ambulation Distance (feet) 10 Discharge Plan PT Discharge Plan PT suggests discharge to SNF in order to continue rehab and
--- NOTE | 2023-08-02 12:49 | PC.NURSE ---
1100-bp 86/39 (54), increased levophed drip to 4mcg/min 1110-bp 103/30 (54) 1130-bp 85/71 (75) 1150-bp 90/44 (59) 1200-bp 119/46 (70)
--- NOTE | 2023-08-02 13:17 | PC.NURSE ---
switched bp cuff to leg per MD Sinclair at bedside, bp 132/56 (81), decreased levophed drip to 3mcg/min
--- NOTE | 2023-08-02 16:26 | EXP.PN ---
Subjective *Date: 08/02/23 *Time: 16:26 Interval history: Patient was seen and evaluated at the bedside. denies chest pain, shortness of breath, nausea, vomiting, abdominal pain. Patient does not have any complaints at this time. feels better overall Exam Data for Last 24 hours Vital signs and Labs for Last 24 Hours: Temp Pulse Resp BP Pulse Ox O2 Del Method O2 Flow Rate 98.8 F 62 10 L 97/39 L 95 Room Air 2 08/02/23 08:00 08/02/23 15:10 08/02/23 15:10 08/02/23 15:10 08/02/23 15:10 08/02/23 15:10 08/02/23 13:00 Laboratory Results - last 24 hr 08/01/23 15:20: Magnesium 1.3 L 08/01/23 15:41: Urine Color Yellow, Urine Appearance Clear, Urine pH 6.0, Ur Specific [place] <= 1.005, Urine Protein Negative, Urine Glucose (UA) Negative, Urine Ketones Negative, Urine Blood Negative, Urine Nitrate Negative, Urine Bilirubin Negative, Urine Urobilinogen 0.2, Ur Leukocyte Esterase Negative, Urine RBC None, Urine WBC Occasional, Ur Squamous Epith Cells 10-20, Urine Bacteria None 08/01/23 16:54: SARS-CoV-2 (PCR) Not detected, Influenza A Untype (PCR) Not detected, Influenza Type B (PCR) Not detected 08/01/23 19:18: Lactate 1.7, Troponin I < 0.01, Procalcitonin 0.102 08/01/23 21:03: POC Glucose 139 H 08/01/23 21:30: Troponin I 0.02 08/01/23 22:50: POC Glucose 170 H 08/02/23 05:44: WBC 17.1 H, RBC 3.88 L, Hgb 11.2 L, Hct 34.7 L, MCV 89.4, MCH 28.9, MCHC 32.4, RDW 15.2, Plt Count 509 H D, MPV 8.2, Neut % (Auto) 86.6 H, Lymph % (Auto) 12.5, [place] % (Auto) 0.8 L, Eos % (Auto) 0.0 L, Baso % (Auto) 0.1, Neut # (Auto) 14.8 H, Lymph # (Auto) 2.1, [place] # (Auto) 0.1, Eos # (Auto) 0.0, Baso # (Auto) 0.0, Total Counted 100, Neutrophils % (Manual) 92 H, Lymphocytes % (Manual) 8 L, Platelet Estimate Moderate increase, RBC Morphology Normal, Sodium 133 L, Potassium 3.7 D, Chloride 99, Carbon Dioxide 24, Anion Gap 13.7, BUN 13, Creatinine 1.30 H, Estimated Creat Clear 43, Estimated GFR 40 L, Est GFR ( Amer) 48 L, Glucose 212 H D, Calcium 7.8 L, Magnesium 1.6 D, Total Bilirubin 0.5, AST 44 H D, ALT 22, Alkaline Phosphatase 175 H, Total Protein 5.1 L, Albumin 2.0 L, Globulin 3.1, Albumin/Globulin Ratio 0.6 L 08/02/23 05:45: POC Glucose 195 H 08/02/23 10:45: POC Glucose 362 H* I & O for Last 24 hours: Intake & Output 07/30/23 07/31/23 08/01/23 08/02/23 23:59 23:59 23:59 23:59 Intake Total 1206.704 / 2449.704 2420.982 / 2420.982 Output Total 0 / 300 750 / 750 Balance 1206.704 / 2149.704 1670.982 / 1670.982 Weight 76.232 kg 76.232 kg Constitutional Constitutional: no acute distress Comments: juana dry mucous membranes *Routine HEENT Exam Head: Present normocephalic Eye: Present EOMI and PERRL ENT: Present mucous membranes moist *Routine Neck Exam Neck: Present supple; Absent lymphadenopathy *Routine Respiratory Exam Respiratory: Present CTA bilaterally *Routine Cardiovascular Exam Cardiovascular: Present RRR *Routine Abdominal Exam Abdominal: Present soft and normoactive bowel sounds; Absent tenderness *Routine Extremities Exam Extremities: Absent cyanosis, clubbing or edema *Routine Skin Exam Skin: Present warm; Absent rash *Routine Neurological Exam Neurological: Present alert and oriented X3 Assessment and Plan *Assessment and plan (1) Shock: Status: Acute Category: Medical Code(s): R57.9 - Shock, unspecified (2) Acute and chronic respiratory failure with hypoxia: Status: Acute Category: Medical Code(s): J96.21 - Acute and chronic respiratory failure with hypoxia (3) Pleural effusion, bilateral: Status: Acute Category: Medical Code(s): J90 - Pleural effusion, not elsewhere classified (4) Acute hypokalemia: Status: Acute Category: Medical Code(s): E87.6 - Hypokalemia Plan Patient is a 77-year-old female with past medical history of diabetes mellitus COPD on 2 L nasal cannula oxygen at home presented to hospital after being fee
[2023-08-02 16:44] LABS: POC Glucose,Bedside 288 (70-110)
[2023-08-02 20:19] LABS: POC Glucose,Bedside 294 (70-110)
--- NOTE | 2023-08-02 20:26 | PC.NURSE ---
Handoff: Pt resting comfortably in bed, turned on R side with wedge, completing puzzle on tablet. Pt AOx4, on RA, NE at 2 mcg/min with goal MAP running through subclavian access. Explained handoff and introduced ongoing shift. Explained current plan, pt verbalized understanding.
[2023-08-03] VITALS (30 sets, daily range): BP systolic 84–129; BP diastolic 42–66; PULSE 52–90; RESP 14–20; TEMP 36.3–36.9; O2SAT 92–100; BMI 29.7
--- NOTE | 2023-08-03 04:39 | PC.NURSE ---
Pt AOx4, pleasant, and sleeping throughout most of shift. Pt remains on RA with appropriate SpO2. Pt on norepinephrine IV gtt at 2 mcg/min (3.8 mL/hr) throughout shift; attempted to titrate to 1 mcg/min, but MAP <65. Pt required 3 mcg/min (5.6 mL/hr) to maintain MAP >65 for approximately an hour then able to titrate down to 2 mcg/min. Other VSS stable. No c/o pain, discomfort, N/V, or SOB. No cough or sputum seen upon assessments. Turn Q2 hrs implemented. Pt refused bath at this time, saying she wanted to wait until later in the day.
[2023-08-03 06:06] LABS: POC Glucose,Bedside 126 (70-110)
[2023-08-03 07:03] LABS: Alanine Aminotransferase 23 U/L (12-78); Albumin Level 1.8 g/dl (3.5-5.0); Albumin/Globulin Ratio 0.6 (1.1-1.8); Alkaline Phosphatase 140 U/L (38-126); Anion Gap 6.1 mEq/L (5-15); Aspartate Amino Transferase 31 U/L (14-36); Bilirubin,Total 0.3 mg/dl (0.2-1.3); Blood Urea Nitrogen 17 mg/dl (7-17); Calcium 7.8 mg/dl (8.4-10.2); Carbon Dioxide 30 mmol/L (22.0-30.0); Chloride 103 mmol/L (98-107); Creatinine Clearance Estimated 41 mL/min (50-200); Estimated Glomerular Filt Rate 36 ml/min (>60); GFR (African American) 44 ML/MIN (>60); Glucose 136 mg/dl (74-100); Potassium 3.1 mmoL/L (3.5-5.1); Sodium 136 mmol/L (136-145); Total Protein,Serum 4.8 g/dl (6.3-8.2)
[2023-08-03 07:04] LABS: Basophils % 0.1 % (0.1-2.0); Eosinophils % 0.2 % (0.1-12.0); Hemoglobin 10.1 g/dL (12.2-16.2); Lymphocytes # 4.2 K/mm3 (0.7-4.5); Mean Corpuscular HGB Conc 33.8 g/dL (31.8-35.4); Mean Corpuscular Hemoglobin 29.8 pg (27.0-31.2); Mean Corpuscular Volume 88.2 fl (81-99); Mean Platelet Volume 8.3 fl (7.4-10.4); Monocytes # 0.5 K/mm3 (0.1-1.0); Monocytes % 3.2 % (1.7-9.3); Neutrophils # 9.8 K/mm3 (1.8-7.8); Neutrophils % 67.5 % (37.0-80.0); Platelet Count 449 K/mm3 (142-424); Red Cell Distribution Width 15.3 % (11.5-17.5); White Blood Count 14.5 K/mm3 (4.8-10.8)
[2023-08-03 12:43] LABS: POC Glucose,Bedside 217 (70-110)
--- NOTE | 2023-08-03 15:30 | PC.NURSE ---
titrated levophed off, sbp has been above 90mmHg and MAP has been above 65mmHg consistently
[2023-08-03 17:02] LABS: POC Glucose,Bedside 219 (70-110)
--- NOTE | 2023-08-03 17:06 | EXP.PN ---
Subjective *Date: 08/04/23 *Time: 16:03 Interval history: Patient was seen and evaluated at the bedside. alert active holding conversation, in good spiritis. denies chest pain, shortness of breath, nausea, vomiting, abdominal pain. Patient does not have any complaints at this time. feels better overall Exam Data for Last 24 hours Vital signs and Labs for Last 24 Hours: Temp Pulse Resp BP Pulse Ox O2 Del Method O2 Flow Rate 98.4 F 64 18 106/42 L 98 Room Air 2 08/03/23 16:57 08/03/23 16:00 08/03/23 16:00 08/03/23 16:00 08/03/23 16:00 08/03/23 16:00 08/02/23 13:00 Laboratory Results - last 24 hr 08/02/23 19:51: POC Glucose 294 H 08/03/23 05:54: POC Glucose 126 H 08/03/23 06:40: WBC 14.5 H, RBC 3.40 L, Hgb 10.1 L, Hct 30.0 L, MCV 88.2, MCH 29.8, MCHC 33.8, RDW 15.3, Plt Count 449 H, MPV 8.3, Neut % (Auto) 67.5, Lymph % (Auto) 29.0, [place] % (Auto) 3.2, Eos % (Auto) 0.2, Baso % (Auto) 0.1, Neut # (Auto) 9.8 H, Lymph # (Auto) 4.2, [place] # (Auto) 0.5, Eos # (Auto) 0.0, Baso # (Auto) 0.0, Sodium 136, Potassium 3.1 L, Chloride 103, Carbon Dioxide 30, Anion Gap 6.1, BUN 17 D, Creatinine 1.40 H, Estimated Creat Clear 41, Estimated GFR 36 L, Est GFR ( Amer) 44 L, Glucose 136 H, Calcium 7.8 L, Total Bilirubin 0.3, AST 31 D, ALT 23, Alkaline Phosphatase 140 H, Total Protein 4.8 L, Albumin 1.8 L, Globulin 3.0, Albumin/Globulin Ratio 0.6 L 08/03/23 12:07: POC Glucose 217 H 08/03/23 16:53: POC Glucose 219 H I & O for Last 24 hours: Intake & Output 07/31/23 08/01/23 08/02/23 08/03/23 23:59 23:59 23:59 23:59 Intake Total 1206.704 / 2449.704 4865.335 / 4869.335 822.043 / 822.043 Output Total 0 / 300 1370 / 1570 1570 / 1570 Balance 1206.704 / 2149.704 3495.335 / 3299.335 -747.957 / -747.957 Weight 76.232 kg 76.232 kg 79 kg Microbiology Reports for the Last 24 Hours: Microbiology 08/01/23 15:20 Blood Blood Culture - Preliminary 08/01/23 15:20 Blood Blood Culture - Preliminary Constitutional Constitutional: no acute distress Comments: juana dry mucous membranes *Routine HEENT Exam Head: Present normocephalic Eye: Present EOMI and PERRL ENT: Present mucous membranes moist *Routine Neck Exam Neck: Present supple; Absent lymphadenopathy *Routine Respiratory Exam Respiratory: Present CTA bilaterally *Routine Cardiovascular Exam Cardiovascular: Present RRR *Routine Abdominal Exam Abdominal: Present soft and normoactive bowel sounds; Absent tenderness *Routine Extremities Exam Extremities: Absent cyanosis, clubbing or edema *Routine Skin Exam Skin: Present warm; Absent rash *Routine Neurological Exam Neurological: Present alert and oriented X3 Assessment and Plan *Assessment and plan (1) Shock: Status: Acute Category: Medical Code(s): R57.9 - Shock, unspecified (2) Acute and chronic respiratory failure with hypoxia: Status: Acute Category: Medical Code(s): J96.21 - Acute and chronic respiratory failure with hypoxia (3) Pleural effusion, bilateral: Status: Acute Category: Medical Code(s): J90 - Pleural effusion, not elsewhere classified (4) Acute hypokalemia: Status: Acute Category: Medical Code(s): E87.6 - Hypokalemia Plan Patient is a 77-year-old female with past medical history of diabetes mellitus COPD on 2 L nasal cannula oxygen at home presented to hospital after being feeling sick for past 2 to 3 weeks. According to patient she has been feeling sick for past 2 to 3 weeks, she did not seek any medical attention, she has not been able to get out of the bed due to weakness. Patient mentions she has been having cough, she is producing some phlegm, denies chest pain nausea vomiting diarrhea constipation dysuria, denies shortness of breath. She is not making enough urine output, no complains of diarrhea. Assessment shock likely septic shock, differentials include hypovolemic shock Suspect pneumonia
--- NOTE | 2023-08-03 17:21 | EXP.PN ---
Subjective *Date: 08/03/23 *Time: 17:21 Interval history: Patient was seen and evaluated at the bedside. denies chest pain, shortness of breath, nausea, vomiting, abdominal pain. Patient does not have any complaints at this time. feels better overall Exam Data for Last 24 hours Vital signs and Labs for Last 24 Hours: Temp Pulse Resp BP Pulse Ox O2 Del Method O2 Flow Rate 98.4 F 64 18 106/42 L 98 Room Air 2 08/03/23 16:57 08/03/23 16:00 08/03/23 16:00 08/03/23 16:00 08/03/23 16:00 08/03/23 16:00 08/02/23 13:00 Laboratory Results - last 24 hr 08/02/23 19:51: POC Glucose 294 H 08/03/23 05:54: POC Glucose 126 H 08/03/23 06:40: WBC 14.5 H, RBC 3.40 L, Hgb 10.1 L, Hct 30.0 L, MCV 88.2, MCH 29.8, MCHC 33.8, RDW 15.3, Plt Count 449 H, MPV 8.3, Neut % (Auto) 67.5, Lymph % (Auto) 29.0, [place] % (Auto) 3.2, Eos % (Auto) 0.2, Baso % (Auto) 0.1, Neut # (Auto) 9.8 H, Lymph # (Auto) 4.2, [place] # (Auto) 0.5, Eos # (Auto) 0.0, Baso # (Auto) 0.0, Sodium 136, Potassium 3.1 L, Chloride 103, Carbon Dioxide 30, Anion Gap 6.1, BUN 17 D, Creatinine 1.40 H, Estimated Creat Clear 41, Estimated GFR 36 L, Est GFR ( Amer) 44 L, Glucose 136 H, Calcium 7.8 L, Total Bilirubin 0.3, AST 31 D, ALT 23, Alkaline Phosphatase 140 H, Total Protein 4.8 L, Albumin 1.8 L, Globulin 3.0, Albumin/Globulin Ratio 0.6 L 08/03/23 12:07: POC Glucose 217 H 08/03/23 16:53: POC Glucose 219 H I & O for Last 24 hours: Intake & Output 07/31/23 08/01/23 08/02/2308/03/23 23:59 23:59 23:59 23:59 Intake Total 1206.704 / 2449.704 4865.335 / 4869.335 822.043 / 822.043 Output Total 0 / 300 1370 / 1570 1570 / 1570 Balance 1206.704 / 2149.704 3495.335 / 3299.335 -747.957 / -747.957 Weight 76.232 kg 76.232 kg 79 kg Microbiology Reports for the Last 24 Hours: Microbiology 08/01/23 15:20 Blood Blood Culture - Preliminary 08/01/23 15:20 Blood Blood Culture - Preliminary Constitutional Constitutional: no acute distress Comments: juana dry mucous membranes *Routine HEENT Exam Head: Present normocephalic Eye: Present EOMI and PERRL ENT: Present mucous membranes moist *Routine Neck Exam Neck: Present supple; Absent lymphadenopathy *Routine Respiratory Exam Respiratory: Present CTA bilaterally *Routine Cardiovascular Exam Cardiovascular: Present RRR *Routine Abdominal Exam Abdominal: Present soft and normoactive bowel sounds; Absent tenderness *Routine Extremities Exam Extremities: Absent cyanosis, clubbing or edema *Routine Skin Exam Skin: Present warm; Absent rash *Routine Neurological Exam Neurological: Present alert and oriented X3 Assessment and Plan *Assessment and plan (1) Shock: Status: Acute Category: Medical Code(s): R57.9 - Shock, unspecified (2) Acute and chronic respiratory failure with hypoxia: Status: Acute Category: Medical Code(s): J96.21 - Acute and chronic respiratory failure with hypoxia (3) Pleural effusion, bilateral: Status: Acute Category: Medical Code(s): J90 - Pleural effusion, not elsewhere classified (4) Acute hypokalemia: Status: Acute Category: Medical Code(s): E87.6 - Hypokalemia Plan Patient is a 77-year-old female with past medical history of diabetes mellitus COPD on 2 L nasal cannula oxygen at home presented to hospital after being feeling sick for past 2 to 3 weeks. According to patient she has been feeling sick for past 2 to 3 weeks, she did not seek any medical attention, she has not been able to get out of the bed due to weakness. Patient mentions she has been having cough, she is producing some phlegm, denies chest pain nausea vomiting diarrhea constipation dysuria, denies shortness of breath. She is not making enough urine output, no complains of diarrhea. Assessment Septic shock Suspect pneumonia dehydration Hypokalemia Generalized weakness Sacral decubitus ulcer stage II Bilateral pleural effusion
--- NOTE | 2023-08-03 19:25 | PC.NURSE ---
Addendum entered by Sanam Rodriguez RN 08/04/23 05:25: Patient has had a good night. Has been turned every 2hrs rotating hips. The patietn remainswith a danielson and on RA. Currenlty our levo drip is going at 1mcg/min. Patient has not complained of anything this shift. no issues noted by RN Addendum entered by Sanam Rodriguez RN 08/03/23 19:50: Levo increased to 3mcg/min for a BP of 95/43 of Map 60 Original Note: Levo restarted at 1900 for a BP of 75/37
[2023-08-03 20:44] LABS: POC Glucose,Bedside 213 (70-110)
[2023-08-04] VITALS (20 sets, daily range): BP systolic 98–132; BP diastolic 43–72; PULSE 57–80; RESP 15–17; TEMP 36.4–36.9; O2SAT 93–100; BMI 30.4
[2023-08-04 06:05] LABS: POC Glucose,Bedside 188 (70-110)
[2023-08-04 07:01] LABS: Basophils % 0.5 % (0.1-2.0); Eosinophils # 0.2 K/mm3 (0.0-0.4); Eosinophils % 2.2 % (0.1-12.0); Hematocrit 28.6 % (37.0-47.0); Hemoglobin 9.3 g/dL (12.2-16.2); Lymphocytes # 3.2 K/mm3 (0.7-4.5); Lymphocytes % 39.8 % (10-50); Mean Corpuscular HGB Conc 32.7 g/dL (31.8-35.4); Mean Corpuscular Hemoglobin 29.5 pg (27.0-31.2); Mean Corpuscular Volume 90.2 fl (81-99); Mean Platelet Volume 7.9 fl (7.4-10.4); Monocytes # 0.2 K/mm3 (0.1-1.0); Neutrophils # 4.4 K/mm3 (1.8-7.8); Neutrophils % 54.5 % (37.0-80.0); Platelet Count 359 K/mm3 (142-424); Red Blood Count 3.17 M/mm3 (4.20-5.40); Red Cell Distribution Width 15.7 % (11.5-17.5); White Blood Count 8.1 K/mm3 (4.8-10.8)
[2023-08-04 07:13] LABS: Alanine Aminotransferase 23 U/L (12-78); Albumin Level 1.6 g/dl (3.5-5.0); Albumin/Globulin Ratio 0.6 (1.1-1.8); Alkaline Phosphatase 126 U/L (38-126); Anion Gap 5.7 mEq/L (5-15); Aspartate Amino Transferase 27 U/L (14-36); Bilirubin,Total 0.2 mg/dl (0.2-1.3); Blood Urea Nitrogen 17 mg/dl (7-17); Calcium 7.4 mg/dl (8.4-10.2); Carbon Dioxide 27 mmol/L (22.0-30.0); Chloride 106 mmol/L (98-107); Creatinine Clearance Estimated 49 mL/min (50-200); Estimated Glomerular Filt Rate 43 ml/min (>60); GFR (African American) 53 ML/MIN (>60); Globulin 2.7 g/dL (1.3-3.2); Glucose 182 mg/dl (74-100); Sodium 136 mmol/L (136-145); Total Protein,Serum 4.3 g/dl (6.3-8.2)
[2023-08-04 07:18] LABS: Potassium 2.7 mmoL/L (3.5-5.1)
--- NOTE | 2023-08-04 07:29 | PC.NURSE ---
notified ODETTE [place] of pt's critical potassium, no new orders at this time
--- NOTE | 2023-08-04 09:40 | EXP.PHA.PN ---
Subjective *Date: 08/04/23 *Time: 09:40 Medical Exam Vital signs and Labs for Last 24 Hours: Vital Signs Temp Pulse Pulse Resp BP Pulse Ox O2 Del Method 08/04/23 08:00 98.0 F 08/04/23 08:00 99 Room Air 08/04/23 08:00 67 16 115/67 95 Room Air 08/04/23 06:10 57 L 08/04/23 06:10 58 L 08/04/23 06:10 96 Room Air 08/04/23 04:00 70 08/04/23 06:58 Room Air 08/04/23 06:00 58 L 16 114/44 L 96 Room Air 08/04/23 05:00 Room Air 08/04/23 04:00 98.1 F 67 16 130/72 98 Room Air 08/04/23 04:00 Room Air 08/04/23 04:00 98.1 F 08/04/23 03:00 Room Air 08/04/23 02:00 62 17 118/58 L 96 Room Air 08/04/23 01:10 EST 61 15 112/55 L 96 Room Air 08/04/23 00:00 60 08/03/23 20:00 60 08/04/23 01:29 EDT Room Air 08/03/23 23:59 77 08/03/23 23:58 76 08/04/23 00:00 97.8 F 64 16 100/43 L 95 Room Air 08/03/23 23:00 Room Air 08/03/23 22:00 68 16 110/45 L 96 Room Air 08/03/23 21:00 Room Air 08/03/23 20:00 98 F 66 18 103/48 L 98 Room Air 08/03/23 20:00 Room Air 08/03/23 18:00 82 16 112/56 L 98 Room Air 08/03/23 17:59 Room Air 08/03/23 17:00 Room Air 08/03/23 16:00 95 Room Air 08/03/23 17:51 75 08/03/23 17:51 75 08/03/23 17:00 64 18 110/42 L 97 Room Air 08/03/23 16:00 60 08/03/23 16:57 98.4 F 08/03/23 16:00 Room Air 08/03/23 16:00 64 18 106/42 L 98 Room Air 08/03/23 13:10 90 20 114/50 L 97 Room Air 08/03/23 15:00 Room Air 08/03/23 15:00 67 17 103/45 L 98 Room Air 08/03/23 14:00 82 18 107/42 L 99 Room Air 08/03/23 13:00 Room Air 08/03/23 13:00 72 18 84/47 L 93 L Room Air 08/03/23 12:00 60 08/03/23 12:00 98 F 08/03/23 11:00 Room Air 08/03/23 12:00 63 16 125/66 99 Room Air 08/03/23 11:00 82 14 101/44 L 97 Room Air 08/03/23 11:00 63 08/03/23 11:00 68 08/03/23 11:00 96 Room Air Intake and Output 08/04/23 08/04/23 08/04/23 00:59 07:59 15:59 Intake Total 279.571 / 290.973 Output Total Balance 279.571 / -209.027 Intake: Intake, Oral Amount 270 / 270 Intake, Total IV Amount 9.571 / 20.973 Piperacillin/Tazo 3.375 gm In 0 .9 % Sodium Chloride 50 ml @ 100 mls/hr IV Q[facility]H [facility] Rx#: [id number] Output: Output, Urine Amount Output, Urine Amount (Catheter) Patino Other: Weight Patient Weight 08/04/23 22:59 Weight 80.739 kg Laboratory Results - last 24 hr 08/03/23 12:07: POC Glucose 217 H 08/03/23 16:53: POC Glucose 219 H 08/03/23 20:32: POC Glucose 213 H 08/04/23 05:59: POC Glucose 188 H 08/04/23 06:48: WBC 8.1 D, RBC 3.17 L, Hgb 9.3 L, Hct 28.6 L, MCV 90.2, MCH 29.5, MCHC 32.7, RDW 15.7, Plt Count 359, MPV 7.9, Neut % (Auto) 54.5, Lymph % (Auto) 39.8, [place] % (Auto) 3.0, Eos % (Auto) 2.2, Baso % (Auto) 0.5, Neut # (Auto) 4.4, Lymph # (Auto) 3.2, [place] # (Auto) 0.2, Eos # (Auto) 0.2, Baso # (Auto) 0.0, Sodium 136, Potassium 2.7 L*, Chloride 106, Carbon Dioxide 27, Anion Gap 5.7, BUN 17, Creatinine 1.20 H, Estimated Creat Clear 49, Estimated GFR 43 L, Est GFR ( Amer) 53 L D, Glucose 182 H, Calcium 7.4 L, Total Bilirubin 0.2, AST 27, ALT 23, Alkaline Phosphatase 126, Total Protein 4.3 L, Albumin 1.6 L D, Globulin 2.7, Albumin/Globulin Ratio 0.6 L I & O for Labs for Last 24 Hours: Intake & Output 08/01/23 08/02/23 08/03/23 08/04/23 23:59 23:59 23:59 22:59 Intake Total 1206.704 / 2449.704 4865.335 / 4869.335 1311.494 / 1311.494 290.973 / 290.973 Output Total 0 / 300 1370 / 1570 2120 / 2620 500 / 500 Balance 1206.704 / 2149.704 3495.335 / 3299.335 -808.506 / -1308.506 -209.027 / -209.027 Weight 76.232 kg 76.232 kg 79 kg 80.739 kg The patient's infection will respond to the chosen ABx?: Yes ([facility]
[2023-08-04 10:57] LABS: POC Glucose,Bedside 223 (70-110)
[2023-08-04 17:01] LABS: POC Glucose,Bedside 192 (70-110)
[2023-08-04 19:53] LABS: POC Glucose,Bedside 121 (70-110)
--- NOTE | 2023-08-04 20:00 | PC.NURSE ---
After bedside handoff, pt c/o recent N without V that started approximately an hour ago. She reports she did not eat too much dinner because she was nauseated. Pt also c/o lower ABD pain and fullness, but denies BM at this time. PRN Phenergan administered. Later reassessed, pt still c/o N but incredibly drowsy. Will continue to reassess and notify provider PRN.
[2023-08-05] VITALS (14 sets, daily range): BP systolic 100–133; BP diastolic 42–86; PULSE 60–93; RESP 14–20; TEMP 36.5–36.8; O2SAT 91–100; BMI 30.2
--- NOTE | 2023-08-05 04:55 | PC.NURSE ---
Pt AOx4, sleeping, VSS throughout shift. Pt initially c/o N and ABD fullness at beginning of shift, and eventually stated Sx relieved upon 0000 assessment. Central line dressing changed overnight and Patino cath in place. No acute needs or events at this time.
[2023-08-05 06:17] LABS: MANUAL DIFFERENTIAL MANUAL DIFFERENTIAL (MANUAL DIFF)
[2023-08-05 06:22] LABS: Basophils # 0.1 K/mm3 (0-0.2); Basophils % 0.5 % (0.1-2.0); Eosinophils # 0.3 K/mm3 (0.0-0.4); Eosinophils % 3.8 % (0.1-12.0); Hemoglobin 8.9 g/dL (12.2-16.2); Lymphocytes # 3.2 K/mm3 (0.7-4.5); Lymphocytes % 36.4 % (10-50); Mean Corpuscular Hemoglobin 29.5 pg (27.0-31.2); Mean Corpuscular Volume 89.4 fl (81-99); Mean Platelet Volume 7.6 fl (7.4-10.4); Monocytes # 0.3 K/mm3 (0.1-1.0); Monocytes % 3.8 % (1.7-9.3); Neutrophils # 4.8 K/mm3 (1.8-7.8); Neutrophils % 55.5 % (37.0-80.0); Platelet Count 299 K/mm3 (142-424); Red Blood Count 3.02 M/mm3 (4.20-5.40); Red Cell Distribution Width 15.7 % (11.5-17.5); White Blood Count 8.7 K/mm3 (4.8-10.8)
[2023-08-05 06:29] LABS: Blood Urea Nitrogen 15 mg/dl (7-17); Carbon Dioxide 27 mmol/L (22.0-30.0); Chloride 107 mmol/L (98-107); Sodium 137 mmol/L (136-145)
[2023-08-05 06:30] LABS: Calcium 7.4 mg/dl (8.4-10.2); Creatinine Clearance Estimated 54 mL/min (50-200); Estimated Glomerular Filt Rate 48 ml/min (>60); GFR (African American) 58 ML/MIN (>60); Glucose 73 mg/dl (74-100)
[2023-08-05 07:36] LABS: Eosinophils % 2 % (0-3); Lymphocytes % 33 % (10-50); Monocytes % 3 % (2-9); Neutrophils % 62 % (42-76); Total Cells Counted 100
[2023-08-05 07:37] LABS: Hypochromasia 1+; Platelet Estimate Normal
--- NOTE | 2023-08-05 09:10 | PC.NURSE ---
09 pt hr noted to be in the 130's. pt sitting on side of bed with physical therapy. PT informed nurse that pt became weak and stated that she was dizzy. upon entering the room pt was noted to be lying back in bed with eyes closed. she was able to respond verbally to staff and is alert and oriented x 4, although she was weak sounding and soft spoken. pt bp 133/86 on left ankle. [address] Franks face to face of pt symptoms. no new orders.
[2023-08-05 11:40] LABS: POC Glucose,Bedside 184 (70-110)
--- NOTE | 2023-08-05 11:42 | EXP.PULM.PN ---
Subjective *Date: 08/05/23 *Time: 11:42 Interval history: No acute respiratory events over the weekend. Patient denies any new respiratory complaints. Pulmonology Exam Inpatient Vital signs and Labs for Last 24 Hours: Temp Pulse Resp BP Pulse Ox O2 Del Method O2 Flow Rate 98.3 F 75 20 110/51 L 97 Room Air 2 08/05/23 11:14 08/05/23 10:00 08/05/23 10:00 08/05/23 10:00 08/05/23 10:00 08/05/23 10:00 08/02/23 13:00 Laboratory Results - last 24 hr 08/04/23 16:50: POC Glucose 192 H 08/04/23 19:31: POC Glucose 121 H 08/05/23 05:49: WBC 8.7, RBC 3.02 L, Hgb 8.9 L, Hct 27.0 L, MCV 89.4, MCH 29.5, MCHC 33.0, RDW 15.7, Plt Count 299, MPV 7.6, Neut % (Auto) 55.5, Lymph % (Auto) 36.4, [place] % (Auto) 3.8, Eos % (Auto) 3.8, Baso % (Auto) 0.5, Neut # (Auto) 4.8, Lymph # (Auto) 3.2, [place] # (Auto) 0.3, Eos # (Auto) 0.3, Baso # (Auto) 0.1, Total Counted 100, Neutrophils % (Manual) 62, Lymphocytes % (Manual) 33, Monocytes % (Manual) 3, Eosinophils % (Manual) 2, Platelet Estimate Normal, Hypochromasia 1+, Sodium 137, Potassium 3.0 L, Chloride 107, Carbon Dioxide 27, Anion Gap 6.0, BUN 15, Creatinine 1.10 H, Estimated Creat Clear 54, Estimated GFR 48 L, Est GFR ( Amer) 58 L, Glucose 73 L D, Calcium 7.4 L 08/05/23 11:33: POC Glucose 184 H I & O for Labs for Last 24 Hours: Intake & Output 08/03/23 08/04/23 08/04/23 08/05/23 00:59 00:59 23:59 23:59 Intake Total 840 / 840 Output Total 800 / 800 Balance 40 / 40 Weight 177 lb 7.554 oz Microbiology Reports for the Last 24 Hours: Microbiology 08/01/23 15:20 Blood Blood Culture - Preliminary 08/01/23 15:20 Blood Blood Culture - Preliminary Constitutional: Present moderate distress Head: Present normocephalic and atraumatic ENT: Present normal exam, normal oropharynx and mucous membranes moist Neck: Present normal inspection and full ROM Respiratory: Present normal respiratory effort and able to speak in complete sentences; Absent respiratory distress, wheezes or diminished air movement Cardiac: Present S1/S2, Tachycardia and radial pulses present GI: Present soft and distention; Absent tenderness or guarding Rectal (female): Present deferred (female): Present deferred Skin: Present intact; Absent cyanosis or jaundice Neuro: Present alert, awake and oriented x 3 Extremities: Present normal inspection; Absent clubbing or cyanosis Psychiatric: Present normal affect and cooperative Assessment and Plan *Assessment and plan (1) Pleural effusion, bilateral: Status: Acute Category: Medical Code(s): J90 - Pleural effusion, not elsewhere classified (2) Acute and chronic respiratory failure with hypoxia: Status: Acute Category: Medical Code(s): J96.21 - Acute and chronic respiratory failure with hypoxia (3) Shock: Status: Acute Category: Medical Code(s): R57.9 - Shock, unspecified Plan Ms. Wesley is a 77-year-old male with reported possible history diabetes mellitus, CKD, COPD on 2 L chronic presented to the hospital after feeling sick for the last 2 to 3 weeks And found to be in shock needing vasopressor support upon admission pulmonary was called for further evaluation and management CT chest on admission bilateral lower lobe bronchial thickening with mild patchy airspace disease right lower lobe. Bilateral mild pleural effusions noted with adjacent atelectasis. No other dense consolidative changes noted. Afebrile. Leukocytosis upon admission, slightly worsened today with neutrophilic predominance. UA no evidence of infection. Blood and sputum cultures pending. COVID-19 and flu PCR negative Patient is admission was hypotensive, shock initiated on norepinephrine and broad-spectrum antibiotics including vancomycin and Zosyn. Lactate was normal upon admission. On initial consult examination today patient does not appear to be in any respiratory distress. Pressors weaned with maps maintaining and greater
--- NOTE | 2023-08-05 13:00 | EXP.DC.SUM ---
General Admission date:: 08/01/23 Discharge date: 08/05/23 HPI HPI HPI: Patient is a 77-year-old female from [place] with medical history of chronic kidney disease, COPD on home oxygen, colonic fecal impaction, diabetes, chronic back pain with previous pain pump placement. She has numerous drug allergies. For apparently 2 weeks patient has had upper respiratory symptoms with cough. 2 days prior to admission she had precipitous decline with inability to complete activities of daily living and became anuric. Patient was noted to be hemodynamically unstable upon arrival to the emergency department. Evaluation in the emergency department revealed leukocytosis. There was concern for sepsis. She was given broad-spectrum antibiotics, crystalloid infusion, and started on vasopressors. Patient has had continued tenuous blood pressure despite being on vasopressors and multiple antibiotics and has had minimal peripheral venous access and therefore surgical consultation was obtained this evening for placement of central line. CT scan of the chest revealed small to moderate bilateral pleural effusions with bibasilar regions of subtle segmental atelectasis. Bronchiectasis with peribronchial thickening and mucous plugging most pronounced in the right lung base. Hospital Course Hospital Course Hospital Course: Mrs. Wesley is a 77-year-old male with reported possible history diabetes mellitus, CKD, COPD on 2 L chronic presented to the hospital after feeling sick for the last 2 to 3 weeks And found to be in shock needing vasopressor support upon admission. Tolerated treatment for pneumonia well. Sepsis has resolved. Meeting criteria for discharge to care home facility for further rehab. Has completed empiric course of antibiotics. On room air at this time. Tolerating p.o. intake. Problems addressed during hospitalization as follows: Septic shock Pneumonia Dehydration Pleural effusions -CT imaging obtained on admission showing bilateral lower lobe bronchial thickening with mild patchy airspace disease in the right lower lobe. Was started on empiric antibiotics with vancomycin and Zosyn. The patient has clinically improved with normalization in white cell count. Leukocytosis on admission that is resolved with 8.7 on day of discharge. Oxygen requirement has weaned to room air which is better than her home O2. COVID and flu were negative on admission. Patient was found to be hypotensive on presentation initially necessitating vasopressors. Has weaned to midodrine and stabilize blood pressure. Recommend continuing midodrine at discharge. As side effect of antibiotics, has developed yeast infection. Will treat with Diflucan and topical miconazole. Stable respiratory status. Her biggest concern at this time is debility and weakness. PT and OT evaluated, would benefit from rehab with a goal of eventually getting home. Has been graciously accepted by [facility] for skilled therapy. Pulmonology was consulted during admission and assisted with care, per the recommendations. -In regard to her pleural effusions, no indication for thoracentesis at this time. Stable oxygen requirement. Recommend follow-up as an outpatient with pulmonology for further evaluation and repeat imaging in the coming weeks to month. Generalized weakness Sacral decubitus ulcer stage II -Overall debility. PT and OT evaluated during admission. Needing placement. Catheter in place during admission, transitioned to pure wick to help keep sacral wounds dry. Will need wound care nurse eval upon arrival at shelter. CKD stage III - Kidney function stable, creatinine 1.1 and BUN 15 on day of discharge. Recommend CBC, CMP, magnesium in 1 week to monitor for stability- Diabetes mellitus -Continue home regimen at discharge Spent 30 minutes in discharge counseling, chart review, documentation, discussion with subspecialist, and direct care with patient. Exam Data for Last 24
--- NOTE | 2023-08-05 15:04 | PC.NURSE ---
1455 central line removed. pt in trendelenburg, pressure held on removal site. occulsive dressing in place. flat for 30 min
--- NOTE | 2023-08-05 15:12 | PC.NURSE ---
called report to [facility] at [facility] at 1424. attempted to call pt family to notify of DC/transfer to [facility]. unable to reach. pt was able to call and notify pt daughter of dc.
--- NOTE | 2023-08-05 15:29 | PC.NURSE ---
1525 called EMS to arrange transport to [place]
--- NOTE | 2023-08-06 03:59 | EXP.PN ---
Subjective *Date: 08/04/23 *Time: 13:59 Interval history: Patient was seen and evaluated at the bedside. denies chest pain, shortness of breath, nausea, vomiting, abdominal pain. Patient does not have any complaints at this time. feels better overall Exam Data for Last 24 hours Vital signs and Labs for Last 24 Hours: Temp Pulse Resp BP Pulse Ox O2 Del Method O2 Flow Rate 98.3 F 70 18 105/67 L 96 Room Air 2 08/05/23 11:14 08/05/23 16:00 08/05/23 12:00 08/05/23 12:00 08/05/23 12:00 08/05/23 15:00 08/02/23 13:00 Laboratory Results - last 24 hr 08/05/23 05:49: WBC 8.7, RBC 3.02 L, Hgb 8.9 L, Hct 27.0 L, MCV 89.4, MCH 29.5, MCHC 33.0, RDW 15.7, Plt Count 299, MPV 7.6, Neut % (Auto) 55.5, Lymph % (Auto) 36.4, [place] % (Auto) 3.8, Eos % (Auto) 3.8, Baso % (Auto) 0.5, Neut # (Auto) 4.8, Lymph # (Auto) 3.2, [place] # (Auto) 0.3, Eos # (Auto) 0.3, Baso # (Auto) 0.1, Total Counted 100, Neutrophils % (Manual) 62, Lymphocytes % (Manual) 33, Monocytes % (Manual) 3, Eosinophils % (Manual) 2, Platelet Estimate Normal, Hypochromasia 1+, Sodium 137, Potassium 3.0 L, Chloride 107, Carbon Dioxide 27, Anion Gap 6.0, BUN 15, Creatinine 1.10 H, Estimated Creat Clear 54, Estimated GFR 48 L, Est GFR ( Amer) 58 L, Glucose 73 L D, Calcium 7.4 L 08/05/23 11:33: POC Glucose 184 H I & O for Last 24 hours: Intake & Output 08/04/23 08/04/23 08/05/23 08/06/23 00:59 23:59 23:59 23:59 Intake Total 1080 / 1080 Output Total 1000 / 1000 Balance 80 / 80 Weight 80.5 kg Microbiology Reports for the Last 24 Hours: Microbiology 08/01/23 15:20 Blood Blood Culture - Preliminary 08/01/23 15:20 Blood Blood Culture - Preliminary Constitutional Constitutional: no acute distress Comments: juana dry mucous membranes *Routine HEENT Exam Head: Present normocephalic Eye: Present EOMI and PERRL ENT: Present mucous membranes moist *Routine Neck Exam Neck: Present supple; Absent lymphadenopathy *Routine Respiratory Exam Respiratory: Present CTA bilaterally *Routine Cardiovascular Exam Cardiovascular: Present RRR *Routine Abdominal Exam Abdominal: Present soft and normoactive bowel sounds; Absent tenderness *Routine Extremities Exam Extremities: Absent cyanosis, clubbing or edema *Routine Skin Exam Skin: Present warm; Absent rash *Routine Neurological Exam Neurological: Present alert and oriented X3 Assessment and Plan *Assessment and plan (1) Shock: Status: Acute Category: Medical Code(s): R57.9 - Shock, unspecified (2) Acute and chronic respiratory failure with hypoxia: Status: Acute Category: Medical Code(s): J96.21 - Acute and chronic respiratory failure with hypoxia (3) Pleural effusion, bilateral: Status: Acute Category: Medical Code(s): J90 - Pleural effusion, not elsewhere classified (4) Acute hypokalemia: Status: Acute Category: Medical Code(s): E87.6 - Hypokalemia Plan Patient is a 77-year-old female with past medical history of diabetes mellitus COPD on 2 L nasal cannula oxygen at home presented to hospital after being feeling sick for past 2 to 3 weeks. According to patient she has been feeling sick for past 2 to 3 weeks, she did not seek any medical attention, she has not been able to get out of the bed due to weakness. Patient mentions she has been having cough, she is producing some phlegm, denies chest pain nausea vomiting diarrhea constipation dysuria, denies shortness of breath. She is not making enough urine output, no complains of diarrhea. Assessment shock likely septic shock, differentials include hypovolemic shock Suspect pneumonia dehydration Hypokalemia Generalized weakness Sacral decubitus ulcer stage II Bilateral pleural effusions CKD stage III Diabetes mellitus Chronic hypoxic respiratory failure Plan wean abx to levaquin, blood cultures ngtd Started on Levophed, weaned off now, started
--- NOTE | 2023-08-08 16:41 | PC.NURSE ---
blood culture result on worklist. pt d/c per dr. casillas on 08/05/23. notified him via phone at [phone]- states contaminant , no action needed.
== END 2023-08-05 16:26 | DRG 871 ==
LOC: ER 16:05 → 2ND 17:04
PROVIDERS: Nurse Practitioner Critical Care Medicine; Admitting Provider Internal Medicine; Emergency Provider Emergency Medicine; Visit Provider Internal Medicine
DX: A41.9 Sepsis, unspecified organism (principal); J18.9 Pneumonia, unspecified organism; R65.21 Severe sepsis with septic shock; J96.21 Acute and chronic respiratory failure with hypoxia; E87.1 Hypo-osmolality and hyponatremia; C22.8 Malignant neoplasm of liver, primary, unspecified as to type; E87.6 Hypokalemia; E83.42 Hypomagnesemia; E83.51 Hypocalcemia; G89.29 Other chronic pain; M54.9 Dorsalgia, unspecified; Z99.81 Dependence on supplemental oxygen; Z20.822 Contact with and (suspected) exposure to COVID-19; N18.30 Chronic kidney disease, stage 3 unspecified; E11.22 Type 2 diabetes mellitus with diabetic chronic kidney disease; L89.152 Pressure ulcer of sacral region, stage 2; Z79.4 Long term (current) use of insulin
CPT/HCPCS: 36415; 51702; 71045; 71250; 80048; 80053; 81001; 82803; 82962; 83605; 83735; 84145; 84484; 85007; 85014; 85018; 85025; 85048; 85049; 85610; 85730; 87040; 87636; 93005; 94640; 97110; 97163; 97166; 97530; 99291; C1751; J2543; J3475

== ENCOUNTER → 2023-08-12 15:21 | Outpatient (REF) | payer MEDICARE, SELFPAY ==
[2023-08-12 17:40] LABS: Chloride 103 mmol/L (98-107)
[2023-08-12 17:41] LABS: Potassium 3.9 mmoL/L (3.5-5.1); Sodium 135 mmol/L (136-145)
[2023-08-12 17:43] LABS: Alanine Aminotransferase 23 U/L (12-78); Alkaline Phosphatase 131 U/L (38-126); Aspartate Amino Transferase 30 U/L (14-36); Bilirubin,Total 0.2 mg/dl (0.2-1.3); Blood Urea Nitrogen 18 mg/dl (7-17); Estimated Glomerular Filt Rate 48 ml/min (>60); GFR (African American) 58 ML/MIN (>60)
[2023-08-12 17:44] LABS: Albumin Level 1.8 g/dl (3.5-5.0); Albumin/Globulin Ratio 0.7 (1.1-1.8); Anion Gap 6.9 mEq/L (5-15); Calcium 7.8 mg/dl (8.4-10.2); Carbon Dioxide 29 mmol/L (22.0-30.0); Globulin 2.6 g/dL (1.3-3.2); Glucose 114 mg/dl (74-100); Magnesium 1.3 mg/dl (1.6-2.3); Total Protein,Serum 4.4 g/dl (6.3-8.2)
[2023-08-12 17:52] LABS: Basophils # 0.1 K/mm3 (0-0.2); Basophils % 0.4 % (0.1-2.0); Eosinophils # 0.2 K/mm3 (0.0-0.4); Eosinophils % 1.6 % (0.1-12.0); Hematocrit 31.1 % (37.0-47.0); Hemoglobin 10.2 g/dL (12.2-16.2); Lymphocytes # 3.9 K/mm3 (0.7-4.5); Lymphocytes % 30.2 % (10-50); Mean Corpuscular HGB Conc 32.7 g/dL (31.8-35.4); Mean Corpuscular Hemoglobin 29.7 pg (27.0-31.2); Mean Corpuscular Volume 90.9 fl (81-99); Monocytes # 0.4 K/mm3 (0.1-1.0); Monocytes % 3.2 % (1.7-9.3); Neutrophils # 8.3 K/mm3 (1.8-7.8); Neutrophils % 64.6 % (37.0-80.0); Platelet Count 337 K/mm3 (142-424); Red Blood Count 3.42 M/mm3 (4.20-5.40); White Blood Count 12.8 K/mm3 (4.8-10.8)
== END ==
LOC: LAB.DROPOF 15:21
PROVIDERS: PCP Family Medicine; Visit Provider Family Medicine
DX: E83.51 Hypocalcemia (principal); E83.42 Hypomagnesemia
CPT/HCPCS: 80053; 83735; 85025